=== PATIENT | female | born 1950 | race Caucasian/White ===

== ENCOUNTER 2016-06-08 13:12 | Inpatient (IN) | payer MEDICARE, OTHER ==
[2016-06-08] MEDS ORDERED: SUBLIMAZE 100 MCG/2 ML IV ONE ×2 (14:11→14:38)
[2016-06-08 14:13] LABS: BASOPHIL % 0.1 % (0.0-0.4); Eosinophil % 0.6 % (0.00-5.0); Granulocytes % 66.8 % (36.0-66.0); Lymphocytes % 17.2 % (24.0-44.0); Mean Corpuscular Hemoglobin 29.3 pg (26-32); Mean Platelet Volume 9.3 fl (6-9.5); Monocytes % 15.3 % (0.0-12.0); Platelet Count 355 K/mm3 (150-450); Red Blood Count 4.75 M/mm3 (4.1-5.4); Red Cell Distribution Width 14.7 % (11.5-14.0); White Blood Count 7.2 K/mm3 (4.0-10.5)
[2016-06-08] MEDS ORDERED: Sodium Chloride 0.9% 1000 ML 1,000 ML IV SCH (14:15)
[2016-06-08] MEDS ORDERED: SUBLIMAZE 100 MCG/2 ML ONE ×2 (14:17→14:42)
--- NOTE | 2016-06-08 14:30 | ERPHSYRPT ---
- History of Present Illness Time Seen by Provider: 06/08/16 13:20 Source: patient Patient Subjective Stated Complaint: blood in urine for two days Triage Nursing Assessment: to room per own motorized w/c. skin w/d, pale. resp nonlabored. patient is bilateral aka. c/o bleeding from bladder. quick cath done, urine is dark red. also having left lower quad abd tenderness. some bruising noted to area. denies injury. Physician History: CC: blood in urine Hx: 66 y/o patient of Dr Foster. She has hx of intermittent short bouts of hematuria without prior urology investigation. She now has several days hx of dark bloody urine. She is on warfarin for atrial fibrillation. She has some headache. reported some confusion. No fever or chills. No injury. She has prior leg amputation. Timing/Duration: day(s) (few) Allergies/Adverse Reactions: metoprolol Allergy (Severe, Verified 06/08/16 14:33) Hives PCN Allergy (Severe, Uncoded 12/23/14 12:22) Hives REDNESS. sulfa Allergy (Severe, Uncoded 12/23/14 12:22) Hives iodine Allergy (Intermediate, Uncoded 12/23/14 12:22) Skin Irritation Home Medications: Clopidogrel Bisulfate 75 mg [PLAVIX 75 MG Tablet] 75 mg PO DAILY 12/23/11 [History] Fentanyl 100 Mcg Patch [Duragesic 100 MCG Patch] 100 mcg TOP UD 12/23/11 [ History] Insulin Aspart [Novolog] 1 unit SQ UD 12/23/11 [History] Insulin Glargine [Lantus Insulin] 50 unit SQ HS 12/23/11 [History] Nitroglycerin 0.2 mg/Hr [Nitro-Dur 0.2 mg/Hr] 0.2 mg TOP DAILY 12/23/11 [ History] Morphine Sulfate [Morphine Sulfate ER] 60 mg PO TID 11/05/12 [History] Warfarin Sodium 2.5 mg [Coumadin 2.5 MG] 1 mg PO BID 11/05/12 [History] Diltiazem HCl [Cardizem Cd] 180 mg PO DAILY 01/09/16 [History] Diclofenac Sodium Gel [Voltaren GEL] 2 gm TOP QID 05/07/16 [History] Non-Formulary Drug [Non-Formulary Item] 1 mg PO DAILY 06/08/16 [History] Hx Tetanus, Diphtheria Vaccination/Date Given: No Hx Influenza Vaccination/Date Given: Yes Hx Pneumococcal Vaccination/Date Given: No - Review of Systems Constitutional: Fatigue, Malaise, Weakness, No Fever, No Chills Eyes: No Symptoms, No Vision Changes Ears, Nose, & Throat: No Symptoms Respiratory: No Cough, No Dyspnea Cardiac: No Chest Pain Abdominal/Gastrointestinal: No Abdominal Pain, No Nausea, No Vomiting, No Diarrhea Genitourinary Symptoms: Dysuria, Hematuria Skin: No Rash Neurological: Headache, Other (confusion), No Focal Weakness, No Parasthesia All Other Systems: Reviewed and Negative - Past Medical History Pertinent Past Medical History: Yes Neurological History: Peripheral Neuropathy, Other ENT History: No Pertinent History Cardiac History: Arrhythmia, Deep Vein Thrombosis, Hypertension, Peripheral Vascular Disease Respiratory History: No Pertinent History Endocrine Medical History: Diabetes Type II Musculoskeletal History: Other GI Medical History: Gallbladder Disease History: Other Psycho-Social History: Anxiety Female Reproductive Disorders: Uterine Cancer Other Medical History: can not tolerate catheter due to scarring. foot and leg phantom limb pain - Past Surgical History Past Surgical History: Yes Neuro Surgical History: No Pertinent History Cardiac: Vascular Surgery Respiratory: No Pertinent History Gastrointestinal: No Pertinent History Genitourinary: No Pertinent History Musculoskeletal: Amputation Female Surgical History: Hysterectomy Other Surgical History: multiple femoral bypasses, lesion removed from nose ( skin CA). cvl port left chest. lesions removed outer labia - Social History Smoking Status: Former smoker How long have you smoked: 10 years Exposure to second hand smoke: No Drug Use: none Patient Lives Alone: No - Female History Hx Now: No - Nursing Vital Signs Nursing Vital Signs: Initial Vital Signs Temperature 99.3 F Temperature Source Oral Pulse Rate 80 Respiratory Rate 16 Blood Pressure [Right Arm] 129/67 Pain Intensity 5 - Physical Exam General Appearance: alert Eye Exam: PERRL/EOMI Ears, Nose, Throat Exam: normal ENT inspection, moist mucous membranes Neck Exam: normal inspection, non-tender, supple Respiratory Exam: normal breath sounds, lungs clear Cardiovascular Exam: regular rate/rhythm Gastrointestinal/Abdomen Exam: soft, No tenderness, No distention Extremity Exam: other (absent legs) Neurologic Exam: alert, oriented x 3, cooperative, No motor deficits Skin Exam: warm, dry, No rash SpO2 Interpretation: borderline oxygenation SpO2: 93 Oxygen Delivery: Room Air - Course Nursing assessment & vital signs reviewed: Yes Ordered Tests: Active Orders 24 hr Category Date Time Status Supervisor Drying And Winding STAT Care 06/08/16 13:45 Active IV Insertion STAT Care 06/08/16 13:40 Active cath [Cath for Specimen-Straight] STAT Care 06/08/16 13:28 Active HEAD WITHOUT CONTRAST [CT] Stat Exams 06/08/16 14:31 Ordered BLOOD CULTURE Stat Lab 06/08/16 14:47 Received CBC W DIFF Stat Lab 06/08/16 14:06 Completed CMP Stat Lab 06/08/16 14:06 Completed CULTURE,URINE Stat Lab 06/08/16 14:30 Received Lactic Acid Urgent Lab 06/08/16 14:00 Completed PROTIME WITH INR Stat Lab 06/08/16 14:06 Completed UA W/ MICROSCOPIC Stat Lab 06/08/16 14:15 Completed Medication Summary Generic Name Dose Route Start Last Admin Trade Name Freq PRN Reason Stop Dose Admin Sodium Chloride 1,000 mls @ 100 mls/hr 06/08/16 14:15 06/08/16 14:20 Sodium Chloride 0.9% 1000 Ml IV 07/08/16 14:14 100 mls/hr .Q10H MARISOL Administration Discontinued Medications Generic Name Dose Route Start Last Admin Trade Name Freq PRN Reason Stop Dose Admin Fentanyl Citrate 50 mcg 06/08/16 14:11 06/08/16 14:20 Sublimaze 100 Mcg/2 Ml IV 06/08/16 14:12 50 mcg STAT ONE Administration Fentanyl Citrate Confirm 06/08/16 14:17 Sublimaze 100 Mcg/2 Ml Administered 06/08/16 14:18 Dose 100 mcg .ROUTE .STK-MED ONE Fentanyl Citrate 50 mcg 06/08/16 14:38 06/08/16 14:43 Sublimaze 100 Mcg/2 Ml IV 06/08/16 14:39 50 mcg STAT ONE Administration Fentanyl Citrate Confirm 06/08/16 14:42 Sublimaze 100 Mcg/2 Ml Administered 06/08/16 14:43 Dose 100 mcg .ROUTE .STK-MED ONE Ceftriaxone Sodium/Dextrose 50 mls @ 100 mls/hr 06/08/16 14:32 06/08/16 14:38 Rocephin 1 Gm-D5w 50 Ml Bag IV 06/08/16 15:01 100 mls/hr STAT ONE Administration Ceftriaxone Sodium/Dextrose Confirm 06/08/16 14:36 Rocephin 1 Gm-D5w 50 Ml Bag Administered 06/08/16 14:37 Dose 50 mls @ ud IV .STK-MED ONE Lab/Rad Data: Laboratory Result Diagrams 06/08/16 14:06 06/08/16 14:06 Laboratory Results 06/08/16 06/08/16 06/08/16 Range/Units 14:15 14:06 14:06 WBC (4.0-10.5) K/mm3 RBC (4.1-5.4) M/mm3 Hgb (12.0-16.0) gm/dl Hct (35-47) % MCV (78-100) fl MCH (26-32) pg MCHC (32-36) g/dl RDW (11.5-14.0) % Plt Count (150-450) K/mm3 MPV (6-9.5) fl Gran % (36.0-66.0) % Lymphocytes % (24.0-44.0) % Monocytes % (0.0-12.0) % Eosinophils % (0.00-5.0) % Basophils % (0.0-0.4) % Basophils # (0-0.4) INR 6.28 H* (0.8-3.0) Sodium 134 L (136-145) mEq/L Potassium 3.9 (3.5-5.1) mEq/L Chloride 98 (98-107) mEq/L Carbon Dioxide 24.8 (21-32) mEq/L Anion Gap 15.4 H (5-15) MEQ/L BUN 28 H (9-20) mg/dL Creatinine 1.01 (0.55-1.30) mg/dl Estimated GFR 58 ML/MIN Glucose 119 H (70-110) MG/DL Lactic Acid (0.4-2.0) Calcium 9.2 (8.5-10.1) mg/dL Total Bilirubin 0.6 (0.2-1.0) mg/dL AST 14 L (15-37) U/L ALT 7 L (12-78) U/L Alkaline Phosphatase 82 (46-116) U/L Serum Total Protein 7.4 (6.4-8.2) gm/dL Albumin 3.0 L (3.4-5.0) g/dL Ur Collection Type CATH Urine Color RED (YELLOW) Urine Appearance CLOUDY (CLEAR) Urine pH 6.0 (5-6) Ur Specific [facility] 1.025 (1.005-1.025) Urine Protein >300 (Negative) Urine Glucose (UA) NEGATIVE (NEGATIVE) mg/dL Urine Ketones SMALL-15 (NEGATIVE) Urine Nitrite POSITIVE (NEGATIVE) Urine Bilirubin MODERATE (NEGATIVE) Urine Urobilinogen 1 (0-1) mg/dL Urine WBC (Auto) NEGATIVE (NEGATIVE) Urine RBC (Auto) LARGE (0-5) [facility]/ul Urine Microscopic RBC >100 (0-2) /HPF Urine Microscopic WBC 2-5 (0-5) /HPF Ur Epithelial Cells RARE (FEW) /HPF Urine Bacteria FEW (NEGATIVE) /HPF Specimen Received 06/08/16 1417 06/08/16 06/08/16 Range/Units 14:06 14:00 WBC 7.2 (4.0-10.5) K/mm3 RBC 4.75 (4.1-5.4) M/mm3 Hgb 13.9 (12.0-16.0) gm/dl Hct 41.8 (35-47) % MCV 88.0 (78-100) fl MCH 29.3 (26-32) pg MCHC 33.3 (32-36) g/dl RDW 14.7 H (11.5-14.0) % Plt Count 355 (150-450) K/mm3 MPV 9.3 (6-9.5) fl Gran % 66.8 H (36.0-66.0) % Lymphocytes % 17.2 L (24.0-44.0) % Monocytes % 15.3 H (0.0-12.0) % Eosinophils % 0.6 (0.00-5.0) % Basophils % 0.1 (0.0-0.4) % Basophils # 0.01 (0-0.4) INR (0.8-3.0) Sodium (136-145) mEq/L Potassium (3.5-5.1) mEq/L Chloride (98-107) mEq/L Carbon Dioxide (21-32) mEq/L Anion Gap (5-15) MEQ/L BUN (9-20) mg/dL Creatinine (0.55-1.30) mg/dl Estimated GFR ML/MIN Glucose (70-110) MG/DL Lactic Acid 1.5 (0.4-2.0) Calcium (8.5-10.1) mg/dL Total Bilirubin (0.2-1.0) mg/dL AST (15-37) U/L ALT (12-78) U/L Alkaline Phosphatase (46-116) U/L Serum Total Protein (6.4-8.2) gm/dL Albumin (3.4-5.0) g/dL Ur Collection Type Urine Color (YELLOW) Urine Appearance (CLEAR) Urine pH (5-6) Ur Specific [facility] (1.005-1.025) Urine Protein (Negative) Urine Glucose (UA) (NEGATIVE) mg/dL Urine Ketones (NEGATIVE) Urine Nitrite (NEGATIVE) Urine Bilirubin (NEGATIVE) Urine Urobilinogen (0-1) mg/dL Urine WBC (Auto) (NEGATIVE) Urine RBC (Auto) (0-5) [facility]/ul Urine Microscopic RBC (0-2) /HPF Urine Microscopic WBC (0-5) /HPF Ur Epithelial Cells (FEW) /HPF Urine Bacteria (NEGATIVE) /HPF Specimen Received - Progress Progress Note: 06/08/16 15:32 Pt has mild confusion per so CT head done. Results pending but prelim without bleed. She had UTI, coumadin coagulopathy, and hematuria. Called Dr Foster and will admit to IP for abtx. Cultures pending. Discussed with : Jaime Will see patient in: hospital (full admit) Counseled pt/family regarding: lab results, diagnosis, need for follow-up, rad results - Departure Time of Disposition: 15:33 Departure Disposition: In-patient Admission Clinical Impression: coumadin coagulopathy, UTI (urinary tract infection), Hematuria, Confusion Condition: Fair Critical Care Time: No Referrals: EDEL FOSTER MD [Primary Care Provider] -
[2016-06-08] MEDS ORDERED: ROCEPHIN 1 Gm-D5w 50 ml Bag** 50 ML IV ONE ×2 (14:32→14:36)
[2016-06-08 14:39] LABS: PROTIME 67.3 SECONDS (9.95-12.35)
[2016-06-08 14:42] LABS: ANION GAP 15.4 MEQ/L (5-15); BILIRUBIN,TOTAL 0.6 mg/dL (0.2-1.0); Carbon Dioxide 24.8 mEq/L (21-32); Potassium 3.9 mEq/L (3.5-5.1); Total Protein 7.4 gm/dL (6.4-8.2)
[2016-06-08 14:50] LABS: Collection Type CATH
[2016-06-08 14:51] LABS: Bacteria FEW /HPF (NEGATIVE); COMPLETE URINE MICROSCOPIC? YES; Epithelial Cells RARE /HPF (FEW)
[2016-06-08 14:57] LABS: INR 6.28 (0.8-3.0)
[2016-06-08] MEDS ORDERED: Vitamin K 10 MG/ML PO ONE (15:34)
[2016-06-08] MEDS ORDERED: Vitamin K 10 MG/ML ONE (15:41)
[2016-06-08] MEDS: Sodium Chloride 0.9% 1000 ML 1,000 ML IV SCH (17:37)
[2016-06-08] MEDS ORDERED: DUONEB 0.5-3 MG/3 ml Neb IH ONE (18:50)
--- NOTE | 2016-06-08 20:39 | PCM.HP ---
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 she presented to the ER with gross hematuria, has coumadin on hold due to INR of 6 2 days ago, was on 2mg daily prior to this and has been quite stable for some time, she is having a hard time passing urine due to clots, no fever, no vomiting or abd pain, no cough, has soreness in lower abdomen. - Review of Systems Constitutional: No Fever, No Chills Respiratory: No Cough, No Short Of Breath Cardiac: No Chest Pain, No Edema, No Syncope Genitourinary Symptoms: Hematuria, Urinary Retention, No Dysuria Skin: No Rash All Other Systems: Reviewed and Negative Medications & Allergies Home Medications: Home Medication List Clopidogrel Bisulfate 75 mg [PLAVIX 75 MG Tablet] 75 mg PO DAILY 12/23/11 [History Confirmed 06/08/16] Fentanyl 100 Mcg Patch [Duragesic 100 MCG Patch] 100 mcg TOP UD 12/23/11 [ History Confirmed 06/08/16] Insulin Aspart [Novolog] 1 unit SQ UD 12/23/11 [History Confirmed 06/08/16] Insulin Glargine [Lantus Insulin] 50 unit SQ HS 12/23/11 [History Confirmed 06/08/16] Nitroglycerin 0.2 mg/Hr [Nitro-Dur 0.2 mg/Hr] 0.2 mg TOP DAILY 12/23/11 [ History Confirmed 06/08/16] Morphine Sulfate [Morphine Sulfate ER] 60 mg PO TID 11/05/12 [History Confirmed 06/08/16] Diltiazem HCl [Cardizem Cd] 180 mg PO HS 01/09/16 [History Confirmed 06/08/16] Diclofenac Sodium Gel [Voltaren GEL] 2 gm TOP QID PRN PRN 05/07/16 [ History Confirmed 06/08/16] Calcium Carb/Magnesium Hydrox [Rolaids Chewable Tablet] 1 each PO UD PRN [History Confirmed 06/08/16] Cranberry 500 mg PO DAILY 06/08/16 [History Confirmed 06/08/16] Fluconazole 100 mg [Diflucan 100 MG] 100 mg PO DAILY PRN PRN 06/08/16 [ History Confirmed 06/08/16] Lutein [Natural Lutein] 20 mg PO DAILY 06/08/16 [History Confirmed 06/08/16] Non-Formulary Drug [Non-Formulary Item] 1 mg PO TID 06/08/16 [History Confirmed 06/08/16] Warfarin Sodium 2 mg [Coumadin 2 MG] 2 mg PO HS 06/08/16 [History Confirmed 06/08/16] Allergies/Adverse Reactions: Allergies Allergy/AdvReac Type Severity Reaction Status Date / Time metoprolol Allergy Severe Hives Verified 06/08/16 14:33 pantoprazole [From Protonix] Allergy Verified 06/08/16 15:38 PCN Allergy Severe Hives Uncoded 12/23/14 12:22 sulfa Allergy Severe Hives Uncoded 12/23/14 12:22 iodine Allergy Intermediate Skin Uncoded 12/23/14 12:22 Irritation - Past Medical History Past Medical History: Yes Neurological History: Peripheral Neuropathy, Other ENT History: No Pertinent History Cardiac History: Arrhythmia, Deep Vein Thrombosis, Hypertension, Peripheral Vascular Disease Respiratory History: No Pertinent History Endocrine Medical History: Diabetes Type II Musculoskelatal History: Other GI Medical History: Gallbladder Disease History: Other Pyscho-Social History: Anxiety Reproductive Disorders: Uterine Cancer Comment: can not tolerate catheter due to scarring. foot and leg phantom limb pain. SKIN CANCER- GENITAL AREA - Female History Are you now?: No - Past Surgical History Past Surgical History: Yes Neuro Surgical History: No Pertinent History Cardiac History: Vascular Surgery Respiratory Surgery: No Pertinent History GI Surgical History: No Pertinent History Genitourinary Surgical Hx: No Pertinent History Musculskeletal Surgical Hx: Amputation Female Surgical History: Hysterectomy Other Surgical History: multiple femoral bypasses, lesion removed from nose ( skin CA). cvl port left chest. lesions removed outer labia - Social History Smoking Status: Former smoker How long have you smoked: 10 years Exposure to second hand smoke: No Alcohol: None Drug Use: none - Physical Exam Vital Signs: Vital Signs - 24 hr Temp Pulse Resp BP Pulse Ox 06/08/16 19:11 77 13 88 L 06/08/16 19:05 77 13 88 L 06/08/16 16:34 98.6 F 78 18 130/63 91 L 06/08/16 16:21 98.6 F 78 18 130/63 91 L 06/08/16 15:34 93 L 06/08/16 15:19 80 16 129/67 91 L 06/08/16 14:24 88 18 129/67 94 L 06/08/16 13:28 99.3 F 96 H 18 129/101 93 L General Appearance: no apparent distress Neurologic Exam: alert, oriented x 3 Eye Exam: PERRL/EOMI, eyes nml inspection Respiratory Exam: normal breath sounds, lungs clear, No respiratory distress Cardiovascular Exam: regular rate/rhythm, normal heart sounds, normal peripheral pulses Gastrointestinal/Abdomen Exam: soft, normal bowel sounds, No tenderness, No mass Extremity Exam: other (saumya AKA) Skin Exam: normal color, warm, dry, No rash Results - Other Procedures and Tests Respiratory Therapy 06/08/16 19:04 neb [Respiratory Nebulizer] PRN 06/08/16 19:10 Oxygen NASAL CANNULA 6 lpm Assessment/Plan (1) Warfarin-induced coagulopathy Current Visit: Yes Status: Acute Assessment & Plan: was given vitamin K in ER, will repeat INR in am, h/h stable. uncertain why the increase in her INR as dosage has been quite stable Code(s): T45.511A - POISONING BY ANTICOAGULANTS, ACCIDENTAL, INIT; D68.9 - COAGULATION DEFECT, UNSPECIFIED (2) UTI (urinary tract infection) Current Visit: Yes Status: Acute Assessment & Plan: cover with rocephin Code(s): N39.0 - URINARY TRACT INFECTION, SITE NOT SPECIFIED (3) Confusion Current Visit: Yes Status: Acute Assessment & Plan: likely secondary to UTI Code(s): R41.0 - DISORIENTATION, UNSPECIFIED (4) Hematuria Current Visit: Yes Status: Acute Code(s): R31.9 - HEMATURIA, UNSPECIFIED (5) Atrial fibrillation Current Visit: Yes Status: Acute Code(s): I48.91 - UNSPECIFIED ATRIAL FIBRILLATION (6) Peripheral vascular disease Current Visit: Yes Status: Acute Code(s): I73.9 - PERIPHERAL VASCULAR DISEASE, UNSPECIFIED (7) Diabetes mellitus Current Visit: Yes Status: Acute Assessment & Plan: continue lantus and treat with SSI Code(s): E11.9 - TYPE 2 DIABETES MELLITUS WITHOUT COMPLICATIONS
[2016-06-08] MEDS: Zofran 4 MG/2 ML VIAL IV PRN (20:54)
[2016-06-08] MEDS: Pepcid 20 MG PO SCH (20:54)
--- NOTE | 2016-06-08 21:13 | XRAY ---
Indication: Headache and confusion. Patient on warfarin therapy. Multiple contiguous axial images obtained through the head without contrast. Comparison: February 21, 2012. Stable age-appropriate global atrophy and minimal periventricular degenerative microvascular ischemia bilaterally. New small remote infarct in the right michael and smaller focus in the left mid valdez radiata. No acute intracranial hemorrhage, abnormal extra-axial fluid collection, or mass effect. Fourth ventricle is midline without hydrocephalus. Bony calvarium intact again with mild hyperostosis frontalis interna. Visualized paranasal sinuses and mastoid air cells are clear. Impression: Nonacute senile brain. New finding for small old infarcts as detailed. Comment: Preliminary interpretation was made by [facility]. No critical discrepancy. CTDI 68.81
--- NOTE | 2016-06-08 21:15 | XRAY ---
Indication: Confusion. Atrial fibrillation. Comparison: June 18, 2013. Portable chest slightly rotated today with now right base atelectasis/scarring and tenting of the right hemidiaphragm. Remaining lungs clear. Heart is not enlarged. Vascularity normal. Stable left-sided Port-A-Cath. Bony thorax intact again with mild osteopenia. Again right axillary acosta dissection. Impression: Nonacute chest with chronic features.
[2016-06-08] MEDS: Cardizem CD 180 MG PO SCH (21:51)
[2016-06-08] MEDS: Lantus Insulin SQ SCH (21:51)
[2016-06-08] MEDS ORDERED: MS CONTIN 30 MG PO SCH (22:00)
[2016-06-08] MEDS ORDERED: TUMS EX TABLETS PO ONE (23:07)
[2016-06-08] MEDS: Tums EX 750 MG PO PRN (23:08)
[2016-06-09 05:42] LABS: BASOPHIL % 0.1 % (0.0-0.4); Eosinophil % 0.6 % (0.00-5.0); Granulocytes % 68.8 % (36.0-66.0); Lymphocytes % 17.5 % (24.0-44.0); Mean Cell Volume 90.4 fl (78-100); Mean Corpuscular Hemoglobin 28.9 pg (26-32); Mean Platelet Volume 9.2 fl (6-9.5); Platelet Count 306 K/mm3 (150-450); Red Blood Count 4.26 M/mm3 (4.1-5.4); Red Cell Distribution Width 14.6 % (11.5-14.0); White Blood Count 8.1 K/mm3 (4.0-10.5)
[2016-06-09 05:54] LABS: INR 4.85 (0.8-3.0); PROTIME 51.9 SECONDS (9.95-12.35)
[2016-06-09 05:55] LABS: ANION GAP 8.7 MEQ/L (5-15); BLOOD UREA NITROGEN 25 mg/dL (9-20); CHLORIDE 102 mEq/L (98-107); Carbon Dioxide 30.1 mEq/L (21-32); Glucose 56 MG/DL (70-110); Potassium 3.9 mEq/L (3.5-5.1); SODIUM 137 mEq/L (136-145)
--- NOTE | 2016-06-09 06:51 | PCM.NOTE ---
Date and Time: 06/09/16 0649 Subjective Assessment: no new complaints today, hematuria seems to be improving. requiring oxygen, no significant cough or complaints of dyspnea Objective Exam General Appearance: no apparent distress Neurologic Exam: alert, oriented x 3 Skin Exam: normal color, warm, dry Respiratory Exam: wheezing, No respiratory distress, No crackles/rales Cardiovascular Exam: regular rate/rhythm, normal heart sounds Gastrointestinal/Abdomen Exam: soft, No tenderness, No mass Extremity Exam: normal inspection, normal range of motion OBJECTIVE DATA Vital Signs: Vital Signs - 24 hr Temp Pulse Resp BP Pulse Ox 06/09/16 04:00 99.2 F 65 20 129/58 97 06/09/16 00:00 98.1 F 89 20 159/70 94 L 06/08/16 20:00 99.1 F 80 17 127/58 94 L 06/08/16 19:11 77 13 88 L 06/08/16 19:05 77 13 88 L 06/08/16 16:34 98.6 F 78 18 130/63 91 L 06/08/16 16:21 98.6 F 78 18 130/63 91 L 06/08/16 15:34 93 L 06/08/16 15:19 80 16 129/67 91 L 06/08/16 14:24 88 18 129/67 94 L 06/08/16 13:28 99.3 F 96 H 18 129/101 93 L Oxygen-Last 24 hours O2 Percentage 60% O2 Percentage 60% O2 Percentage 60% Pain Assessment - Last Documented Pain Intensity 4 Pain Scale Used 0-10 Pain Scale Intake and Output: Intake & Output 06/06/16 06/07/16 06/08/16 06/09/16 11:59 11:59 11:59 11:59 Intake Total 1383 Output Total 500 Balance 883 Weight 70.902 kg Lab Results: Accuchecks Date 06/08/16 Time 22:00 Accucheck Value: 187 Lab Results-Last 24 Hours 06/09/16 06/09/16 06/09/16 Range/Units 05:10 05:10 05:10 WBC 8.1 (4.0-10.5) K/mm3 RBC 4.26 (4.1-5.4) M/mm3 Hgb 12.3 (12.0-16.0) gm/dl Hct 38.5 (35-47) % MCV 90.4 (78-100) fl MCH 28.9 (26-32) pg MCHC 31.9 L (32-36) g/dl RDW 14.6 H (11.5-14.0) % Plt Count 306 (150-450) K/mm3 MPV 9.2 (6-9.5) fl Gran % 68.8 H (36.0-66.0) % Lymphocytes % 17.5 L (24.0-44.0) % Monocytes % 13.0 H (0.0-12.0) % Eosinophils % 0.6 (0.00-5.0) % Basophils % 0.1 (0.0-0.4) % Basophils # 0.01 (0-0.4) INR 4.85 H (0.8-3.0) Sodium 137 (136-145) mEq/L Potassium 3.9 (3.5-5.1) mEq/L Chloride 102 (98-107) mEq/L Carbon Dioxide 30.1 (21-32) mEq/L Anion Gap 8.7 (5-15) MEQ/L BUN 25 H (9-20) mg/dL Creatinine 0.85 (0.55-1.30) mg/dl Estimated GFR > 60 ML/MIN Glucose 56 L (70-110) MG/DL Calcium 8.3 L (8.5-10.1) mg/dL Assessment/Plan (1) Warfarin-induced coagulopathy Current Visit: Yes Status: Acute Assessment & Plan: improving, monitor INR Code(s): T45.511A - POISONING BY ANTICOAGULANTS, ACCIDENTAL, INIT; D68.9 - COAGULATION DEFECT, UNSPECIFIED (2) UTI (urinary tract infection) Current Visit: Yes Status: Acute Assessment & Plan: on rocephin, c and s pending. Code(s): N39.0 - URINARY TRACT INFECTION, SITE NOT SPECIFIED (3) Confusion Current Visit: Yes Status: Acute Assessment & Plan: improving. Code(s): R41.0 - DISORIENTATION, UNSPECIFIED (4) Hematuria Current Visit: Yes Status: Acute Code(s): R31.9 - HEMATURIA, UNSPECIFIED (5) Atrial fibrillation Current Visit: Yes Status: Acute Code(s): I48.91 - UNSPECIFIED ATRIAL FIBRILLATION (6) Peripheral vascular disease Current Visit: Yes Status: Acute Code(s): I73.9 - PERIPHERAL VASCULAR DISEASE, UNSPECIFIED (7) Diabetes mellitus Current Visit: Yes Status: Acute Code(s): E11.9 - TYPE 2 DIABETES MELLITUS WITHOUT COMPLICATIONS (8) COPD exacerbation Current Visit: Yes Status: Acute Assessment & Plan: mild, will add duonebs timed every 6 hours, on rocephin. will observe Code(s): J44.1 - CHRONIC OBSTRUCTIVE PULMONARY DISEASE W (ACUTE) EXACERBATION
[2016-06-09] MEDS: DUONEB 0.5-3 MG/3 ml Neb IH SCH ×3 (08:27→19:14)
[2016-06-09] MEDS: Sodium Chloride 0.9% 1000 ML 1,000 ML IV SCH (09:18)
[2016-06-09] MEDS: NITRO-DUR 0.2 MG/HR TOP SCH (09:19)
[2016-06-09] MEDS: ROCEPHIN 1 Gm-D5w 50 ml Bag** 50 ML IV SCH ×2 (09:19→22:31)
[2016-06-09] MEDS: MS CONTIN 60 MG PO SCH ×3 (09:20→22:12)
[2016-06-09] MEDS: Pepcid 20 MG PO SCH ×2 (09:20→22:13)
[2016-06-09] MEDS: Tums EX 750 MG PO PRN ×2 (10:24→23:38)
[2016-06-09] MEDS: Lantus Insulin SQ SCH (22:13)
[2016-06-09] MEDS: Cardizem CD 180 MG PO SCH (22:13)
[2016-06-10] MEDS: DUONEB 0.5-3 MG/3 ml Neb IH SCH ×4 (01:44→19:08)
[2016-06-10 05:33] LABS: BASOPHIL % 0.3 % (0.0-0.4); Eosinophil % 2.4 % (0.00-5.0); Granulocytes % 61.4 % (36.0-66.0); Lymphocytes % 21.2 % (24.0-44.0); Mean Cell Volume 90.2 fl (78-100); Mean Corpuscular Hemoglobin 29.4 pg (26-32); Mean Platelet Volume 9.1 fl (6-9.5); Monocytes % 14.7 % (0.0-12.0); Platelet Count 308 K/mm3 (150-450); Red Blood Count 4.08 M/mm3 (4.1-5.4); Red Cell Distribution Width 14.5 % (11.5-14.0); White Blood Count 7.4 K/mm3 (4.0-10.5)
[2016-06-10 05:48] LABS: INR 3.65 (0.8-3.0); PROTIME 39.4 SECONDS (9.95-12.35)
[2016-06-10 05:54] LABS: BLOOD UREA NITROGEN 16 mg/dL (9-20); CHLORIDE 104 mEq/L (98-107); Carbon Dioxide 27.3 mEq/L (21-32); Glucose 52 MG/DL (70-110); Potassium 3.4 mEq/L (3.5-5.1); SODIUM 140 mEq/L (136-145)
[2016-06-10] MEDS: Sodium Chloride 0.9% 1000 ML 1,000 ML IV SCH (06:21)
--- NOTE | 2016-06-10 07:54 | PCM.NOTE ---
Date and Time: 06/10/16 0753 Subjective Assessment: patient still feels poorly, aching and weak. no specific complaints, just doesn' t feel well Objective Exam General Appearance: no apparent distress, alert Skin Exam: normal color, warm, dry Respiratory Exam: normal breath sounds, lungs clear, No respiratory distress Cardiovascular Exam: regular rate/rhythm, normal heart sounds Gastrointestinal/Abdomen Exam: soft, No tenderness, No mass Extremity Exam: other (phu AKA) OBJECTIVE DATA Vital Signs: Vital Signs - 24 hr Temp Pulse Resp BP Pulse Ox 06/10/16 07:07 97.8 F 68 20 138/74 96 06/10/16 06:53 63 16 93 L 06/10/16 04:00 98.9 F 67 16 142/64 93 L 06/10/16 01:44 61 16 97 06/10/16 00:00 98.9 F 65 14 137/64 98 06/09/16 20:00 98.5 F 60 16 113/58 95 06/09/16 19:29 97 06/09/16 19:15 66 20 97 06/09/16 16:00 98.1 F 71 23 124/71 97 06/09/16 13:32 75 20 96 06/09/16 11:31 98.2 F 81 20 128/60 95 06/09/16 08:30 70 20 96 06/09/16 08:00 98.9 F 67 18 95/52 96 Oxygen-Last 24 hours O2 Percentage 2 Liters = 28% O2 Percentage 2 Liters = 28% O2 Percentage 2 Liters = 28% O2 Percentage 2 Liters = 28% O2 Percentage 2 Liters = 28% O2 Percentage 2 Liters = 28% O2 Percentage 4 Liters = 36% Pain Assessment - Last Documented Pain Intensity 0 Pain Scale Used 0-10 Pain Scale Intake and Output: Intake & Output 06/07/16 06/08/16 06/09/16 06/10/16 11:59 11:59 11:59 11:59 Intake Total 1383 2007 Output Total 500 Balance 883 2007 Weight 70.902 kg Lab Results: Accuchecks Date 06/09/16 Date 06/09/16 Time 16:30 Time 11:14 Accucheck Value: 84 Accucheck Value: 126 Accucheck Value: 102 Accucheck Value: 87 Lab Results-Last 24 Hours 0406/10/16 06/10/16 Range/Units 05:20 05:20 05:20 WBC 7.4 (4.0-10.5) K/mm3 RBC 4.08 L (4.1-5.4) M/mm3 Hgb 12.0 (12.0-16.0) gm/dl Hct 36.8 (35-47) % MCV 90.2 (78-100) fl MCH 29.4 (26-32) pg MCHC 32.6 (32-36) g/dl RDW 14.5 H (11.5-14.0) % Plt Count 308 (150-450) K/mm3 MPV 9.1 (6-9.5) fl Gran % 61.4 (36.0-66.0) % Lymphocytes % 21.2 L (24.0-44.0) % Monocytes % 14.7 H (0.0-12.0) % Eosinophils % 2.4 (0.00-5.0) % Basophils % 0.3 (0.0-0.4) % Basophils # 0.02 (0-0.4) INR 3.65 H (0.8-3.0) Sodium 140 (136-145) mEq/L Potassium 3.4 L (3.5-5.1) mEq/L Chloride 104 (98-107) mEq/L Carbon Dioxide 27.3 (21-32) mEq/L Anion Gap 12.0 (5-15) MEQ/L BUN 16 (9-20) mg/dL Creatinine 0.63 (0.55-1.30) mg/dl Estimated GFR > 60 ML/MIN Glucose 52 L (70-110) MG/DL Calcium 8.1 L (8.5-10.1) mg/dL Multi-Disciplinary Progress Notes: Multi-Disciplinary Progress Notes 06/09/16 10:50 Case Management Note by Corrine Bah DISCHARGE NEEDS ASSESSED. PHU AMPUTEE, NORMALLY LIVES AT HOME WITH SPOUSE, HAS A WHEELCHAIR AND IS ON WARFARIN ANTICOAGULANT. NO OXYGEN. DENIES NEED FOR ANY ADDITIONAL NEEDS AT HOME. DENIES NEED FOR A LAY CAREGIVER. PLAN TO GO HOME TO PRE EPISODIC LEVEL OF FUNCTION. WILL CONTINUE TO MONITOR FOR ALL D/C NEEDS. Initialized on 06/09/16 10:50 - END OF NOTE Assessment/Plan (1) Warfarin-induced coagulopathy Current Visit: Yes Status: Acute Assessment & Plan: improved, inr 3.6 and hgb normal at 12 Code(s): T45.511A - POISONING BY ANTICOAGULANTS, ACCIDENTAL, INIT; D68.9 - COAGULATION DEFECT, UNSPECIFIED (2) UTI (urinary tract infection) Current Visit: Yes Status: Acute Assessment & Plan: on rocephin, c and s pending Code(s): N39.0 - URINARY TRACT INFECTION, SITE NOT SPECIFIED (3) Confusion Current Visit: Yes Status: Acute Code(s): R41.0 - DISORIENTATION, UNSPECIFIED (4) Hematuria Current Visit: Yes Status: Acute Assessment & Plan: improving Code(s): R31.9 - HEMATURIA, UNSPECIFIED (5) Atrial fibrillation Current Visit: Yes Status: Acute Code(s): I48.91 - UNSPECIFIED ATRIAL FIBRILLATION (6) Peripheral vascular disease Current Visit: Yes Status: Acute Code(s): I73.9 - PERIPHERAL VASCULAR DISEASE, UNSPECIFIED (7) Diabetes mellitus Current Visit: Yes Status: Acute Code(s): E11.9 - TYPE 2 DIABETES MELLITUS WITHOUT COMPLICATIONS (8) COPD exacerbation Current Visit: Yes Status: Acute Code(s): J44.1 - CHRONIC OBSTRUCTIVE PULMONARY DISEASE W (ACUTE) EXACERBATION
[2016-06-10] MEDS: NITRO-DUR 0.2 MG/HR TOP SCH (09:49)
[2016-06-10] MEDS: MS CONTIN 60 MG PO SCH ×3 (09:51→22:29)
[2016-06-10] MEDS: Pepcid 20 MG PO SCH ×2 (09:51→22:29)
[2016-06-10] MEDS: ROCEPHIN 1 Gm-D5w 50 ml Bag** 50 ML IV SCH (09:52)
[2016-06-10] MEDS: DURAGESIC TOP SCH (09:53)
[2016-06-10] MEDS: Tums EX 750 MG PO PRN (10:31)
[2016-06-10] MEDS: TYLENOL 325 MG PO PRN (13:29)
[2016-06-10] MEDS: Zofran 4 MG/2 ML VIAL IV PRN (15:21)
[2016-06-10] MEDS: Phenergan 25 MG INJ IV PRN (17:12)
[2016-06-10] MEDS: Dextrose 5%-NS IV Solution 1000 ML 1,000 ML IV SCH (20:06)
[2016-06-10] MEDS: Cardizem CD 180 MG PO SCH (22:28)
[2016-06-10] MEDS: Lantus Insulin SQ SCH (22:30)
[2016-06-11] MEDS: DUONEB 0.5-3 MG/3 ml Neb IH SCH ×4 (03:17→19:20)
[2016-06-11 05:44] LABS: Eosinophil % 0.7 % (0.00-5.0); Lymphocytes % 13.1 % (24.0-44.0); Mean Cell Volume 89.7 fl (78-100); Mean Platelet Volume 8.9 fl (6-9.5); Monocytes % 20.2 % (0.0-12.0); Platelet Count 318 K/mm3 (150-450); Red Blood Count 4.06 M/mm3 (4.1-5.4); Red Cell Distribution Width 14.3 % (11.5-14.0)
[2016-06-11 05:59] LABS: LIPASE 39 U/L (73-393)
[2016-06-11] MEDS: Dextrose 5%-NS IV Solution 1000 ML 1,000 ML IV SCH (06:00)
[2016-06-11 06:01] LABS: INR 4.4 (0.8-3.0); PROTIME 47.2 SECONDS (9.95-12.35)
[2016-06-11 06:06] LABS: ALBUMIN 2.3 g/dL (3.4-5.0); ALKALINE PHOSPHATASE 69 U/L (46-116); ANION GAP 7.7 MEQ/L (5-15); BILIRUBIN,TOTAL 0.3 mg/dL (0.2-1.0); BLOOD UREA NITROGEN 15 mg/dL (9-20); CHLORIDE 103 mEq/L (98-107); Carbon Dioxide 34.5 mEq/L (21-32); Glucose 84 MG/DL (70-110); SGOT/AST 13 U/L (15-37); SODIUM 143 mEq/L (136-145)
[2016-06-11 06:17] LABS: Potassium 2.8 mEq/L (3.5-5.1); SGPT/ALT < 6 U/L (12-78)
[2016-06-11] MEDS: POTASSIUM CHLORIDE 20 mEq IN WATER 100ML 100 ML IV SCH ×2 (07:50→11:05)
[2016-06-11] MEDS ORDERED: Vitamin K 10 MG/ML IM ONE (09:34)
--- NOTE | 2016-06-11 09:34 | PCM.NOTE ---
Date and Time: 06/11/16929 Subjective Assessment: patient reports her abdomen is hurting, no vomiting overnight since she has been NPO. states she feels terrible Objective Exam General Appearance: no apparent distress, alert Respiratory Exam: normal breath sounds, lungs clear, No respiratory distress Cardiovascular Exam: regular rate/rhythm, normal heart sounds Gastrointestinal/Abdomen Exam: soft, No normal bowel sounds, No distention, No guarding OBJECTIVE DATA Vital Signs: Vital Signs - 24 hr Temp Pulse Resp BP Pulse Ox 06/11/16 07:46 98.7 F 77 20 121/61 93 L 06/11/16 07:00 76 18 93 L 06/11/16 04:00 98.6 F 72 19 128/60 94 L 06/11/16 00:00 98.6 F 126 H 21 91/66 93 L 06/10/16 19:39 98.0 F 110 H 21 115/65 93 L 06/10/16 19:11 110 H 14 95 06/10/16 15:19 98.6 F 70 22 142/68 97 06/10/16 13:21 83 20 95 06/10/16 12:18 98.7 F 68 20 132/63 96 Oxygen-Last 24 hours O2 Percentage 2 Liters = 28% O2 Percentage 2 Liters = 28% O2 Percentage 2 Liters = 28% O2 Percentage 2 Liters = 28% O2 Percentage 2 Liters = 28% Pain Assessment - Last Documented Pain Intensity 8 Pain Scale Used 0-10 Pain Scale Intake and Output: Intake & Output 06/08/16 06/09/16 06/10/16 06/11/16 11:59 11:59 11:59 11:59 Intake Total 1383 2007 165 Output Total 500 500 Balance 883 2007 115 Weight 70.902 kg 70.902 kg Lab Results: Accuchecks Date 06/10/16 Time 22:00 Accucheck Value: 68 Accucheck Value: 157 Accucheck Value: 97 Accucheck Value: 100 Lab Results-Last 24 Hours 06/11/16 06/11/16 06/11/16 Range/Units 05:23 05:23 05:23 WBC 6.0 (4.0-10.5) K/mm3 RBC 4.06 L (4.1-5.4) M/mm3 Hgb 11.8 L (12.0-16.0) gm/dl Hct 36.4 (35-47) % MCV 89.7 (78-100) fl MCH 29.0 (26-32) pg MCHC 32.4 (32-36) g/dl RDW 14.3 H (11.5-14.0) % Plt Count 318 (150-450) K/mm3 MPV 8.9 (6-9.5) fl Gran % 66.0 (36.0-66.0) % Lymphocytes % 13.1 L (24.0-44.0) % Monocytes % 20.2 H (0.0-12.0) % Eosinophils % 0.7 (0.00-5.0) % Basophils % 0.0 (0.0-0.4) % Basophils # 0 (0-0.4) INR 4.40 H (0.8-3.0) Sodium 143 (136-145) mEq/L Potassium 2.8 L* (3.5-5.1) mEq/L Chloride 103 (98-107) mEq/L Carbon Dioxide 34.5 H (21-32) mEq/L Anion Gap 7.7 (5-15) MEQ/L BUN 15 (9-20) mg/dL Creatinine 0.71 (0.55-1.30) mg/dl Estimated GFR > 60 ML/MIN Glucose 84 (70-110) MG/DL Calcium 7.9 L (8.5-10.1) mg/dL Total Bilirubin 0.3 (0.2-1.0) mg/dL AST 13 L (15-37) U/L ALT < 6 L (12-78) U/L Alkaline Phosphatase 69 (46-116) U/L Serum Total Protein 6.0 L (6.4-8.2) gm/dL Albumin 2.3 L (3.4-5.0) g/dL Amylase (25-115) U/L Lipase (73-393) U/L 06/11/16 Range/Units 05:23 WBC (4.0-10.5) K/mm3 RBC (4.1-5.4) M/mm3 Hgb (12.0-16.0) gm/dl Hct (35-47) % MCV (78-100) fl MCH (26-32) pg MCHC (32-36) g/dl RDW (11.5-14.0) % Plt Count (150-450) K/mm3 MPV (6-9.5) fl Gran % (36.0-66.0) % Lymphocytes % (24.0-44.0) % Monocytes % (0.0-12.0) % Eosinophils % (0.00-5.0) % Basophils % (0.0-0.4) % Basophils # (0-0.4) INR (0.8-3.0) Sodium (136-145) mEq/L Potassium (3.5-5.1) mEq/L Chloride (98-107) mEq/L Carbon Dioxide (21-32) mEq/L Anion Gap (5-15) MEQ/L BUN (9-20) mg/dL Creatinine (0.55-1.30) mg/dl Estimated GFR ML/MIN Glucose (70-110) MG/DL Calcium (8.5-10.1) mg/dL Total Bilirubin (0.2-1.0) mg/dL AST (15-37) U/L ALT (12-78) U/L Alkaline Phosphatase (46-116) U/L Serum Total Protein (6.4-8.2) gm/dL Albumin (3.4-5.0) g/dL Amylase 17 L (25-115) U/L Lipase 39 L (73-393) U/L Radiology Exams: Radiology Procedures Category Date Time Status ABDOMEN AND PELVIS W/0 CONTRAS [CT] Urgent Exams 06/10/16 17:34 Taken KUB Routine Exams 06/11/16 07:00 Ordered Ultrasound Gallbladder [GALLBLADDER] [US] Routine Exams 06/11/16 07:00 Ordered Assessment/Plan (1) Small bowel obstruction Current Visit: Yes Status: Acute Assessment & Plan: NPO, surgery consult pending. ?SBO vs gallstone ileus. patient to have ruq u/s to r/o CBD stone this am Code(s): K56.69 - OTHER INTESTINAL OBSTRUCTION (2) Cholelithiases Current Visit: Yes Status: Acute Assessment & Plan: amylase and lipase negative, was planned for cholecystectomy with Dr Dye so his group has been consulted regarding SBO/gallstones (3) Warfarin-induced coagulopathy Current Visit: Yes Status: Acute Assessment & Plan: INR has increased again today in spite of no coumadin, will give another dose of vitamin K today Code(s): T45.511A - POISONING BY ANTICOAGULANTS, ACCIDENTAL, INIT; D68.9 - COAGULATION DEFECT, UNSPECIFIED (4) UTI (urinary tract infection) Current Visit: Yes Status: Acute Code(s): N39.0 - URINARY TRACT INFECTION, SITE NOT SPECIFIED (5) Confusion Current Visit: Yes Status: Acute Assessment & Plan: on rocephin, sens on c and s 2 bugs noted Code(s): R41.0 - DISORIENTATION, UNSPECIFIED (6) Hematuria Current Visit: Yes Status: Acute Code(s): R31.9 - HEMATURIA, UNSPECIFIED (7) Atrial fibrillation Current Visit: Yes Status: Acute Code(s): I48.91 - UNSPECIFIED ATRIAL FIBRILLATION (8) Peripheral vascular disease Current Visit: Yes Status: Acute Code(s): I73.9 - PERIPHERAL VASCULAR DISEASE, UNSPECIFIED (9) Diabetes mellitus Current Visit: Yes Status: Acute Code(s): E11.9 - TYPE 2 DIABETES MELLITUS WITHOUT COMPLICATIONS (10) COPD exacerbation Current Visit: Yes Status: Acute Code(s): J44.1 - CHRONIC OBSTRUCTIVE PULMONARY DISEASE W (ACUTE) EXACERBATION
[2016-06-11] MEDS: ROCEPHIN 1 Gm-D5w 50 ml Bag** 50 ML IV SCH (10:17)
[2016-06-11] MEDS: MS CONTIN 60 MG PO SCH ×3 (10:42→21:50)
[2016-06-11] MEDS: Pepcid 20 MG PO SCH ×2 (10:42→21:50)
[2016-06-11] MEDS: NITRO-DUR 0.2 MG/HR TOP SCH (10:42)
[2016-06-11] MEDS: Zofran 4 MG/2 ML VIAL IV PRN (10:52)
--- NOTE | 2016-06-11 11:36 | XRAY ---
Exam: CT of the abdomen and pelvis without IV contrast from 06/10/2016. CTDI: 23.48. Comparison: CT of the abdomen and pelvis without IV contrast from 06/16/2015. Indication: Nausea, vomiting, abdominal pain, elevated INR. Bilateral lower extremity double amputee. Technique: Non-IV contrast axial images were obtained through the abdomen and pelvis. Reconstructed coronal and sagittal images were created and reviewed. Findings: The lung bases reveal bilateral posterior basilar streaking suggestive of discoid atelectasis. Bronchial wall calcification is seen overlying the right hilum and right infrahilar projection posteriorly. The transverse heart size is normal. Some coronary artery calcification is seen. There is marked distention of the stomach which is fluid-filled. There is also significant fluid-filled distention of the small bowel which measures up to 4.5 cm in diameter down to the level of the lower pelvis. Some normal sized distal small bowel loops are seen within the right lower quadrant. I also note reflux of fluid within the distal esophageal lumen. There is a small hiatal hernia. Overall, believe the findings are consistent with a distal small bowel obstruction. Follow-up is warranted. No free intraperitoneal air is seen. The liver appears relatively small and reveals slight irregularity of the liver surface which may reflect chronic hepatic medical disease. Correlate clinically. I believe there is a tiny low-attenuation lesion measuring about 8 mm in diameter at the posterior inferior margin of the right lobe on axial image #20 which is too small to characterize, but likely represents a small cyst. I believe this is unchanged from 06/15/2016. In addition, the gallbladder is mildly distended and reveals some increased attenuation layering within the posterior dependent portion of the gallbladder lumen consistent with cholelithiasis. No gallbladder wall thickening or intrahepatic biliary duct distention is seen. The distal common bile duct is mildly prominent measuring up to 1.2 cm across near the level of the pancreatic head. However, this is unchanged from 06/16/2015. The spleen and pancreas appear unremarkable. The adrenal glands are diffusely prominent bilaterally suggesting some adrenal gland hyperplasia. No adrenal mass is seen. The kidneys appear of unremarkable size measuring about 10.2 cm in greatest length on the sagittal images. In addition, there are numerous predominantly calyceal calcifications as well as a couple renal cortical calcifications. This appears similar to the prior study of 06/16/2015. No hydronephrosis or definite renal mass seen. The abdominal aorta reveals no aneurysm. I see no abnormal retroperitoneal lymphadenopathy. The anterior abdominal wall is remarkable for a small supraumbilical, midline, ventral, fat-containing hernia measuring about 4.3 cm in width. This is essentially unchanged. There is evidence of a femoral-femoral bypass graft along the anterior aspect of the lower pelvis. Dense calcification fills the distal right external iliac artery lumen suggesting occlusion representing no change. I do not definite see the appendix, but no pericecal inflammation is seen to suggest appendicitis. Moderate scattered colonic stool is seen. A surgical clip projecting is seen projected over the anterior upper left pelvis. Numerous surgical clips are seen overlying the lower pelvis bilaterally and each groin and proximal right femur region. Extensive iliac artery vascular calcification is seen. Some probable calcified phleboliths are seen within the lower pelvis toward the left. The patient is status post hysterectomy. The urinary bladder appears grossly unremarkable. No free intraperitoneal fluid is seen. Moderate bilateral osteoarthritic changes are seen within both hips. The bones are demineralized. There is an exaggerated lower lumbar lordosis. There is mild convexity of the thoracolumbar junction toward the left on the coronal images. Spondylosis is seen throughout the visualized thoracolumbar spine. No fracture or aggressive bone lesion is seen. Impression: 1. Abnormal bowel gas pattern most consistent with a distal small bowel obstruction. Consider passing an NG tube for decompression. I see no free intraperitoneal air. 2. Cholelithiasis, small hiatal hernia, bilateral adrenal gland hyperplasia, and a fat-containing ventral hernia superior to the umbilicus in the midline are again seen. 3. Multiple scattered micro-calculi are seen within the kidneys representing no change. No hydronephrosis or evidence of acute obstructive uropathy is seen. No obvious ureterolith is seen. 4. The liver appears somewhat small and reveals a mild irregularity of its surface. Consider hepatic medical disease. I believe there is a tiny stable cyst within the inferior posterior aspect of the right lobe of the liver. 5. Streaky density is seen at both posterior lung bases which likely represents bibasilar discoid atelectasis. 6. Extensive arteriosclerotic vascular disease is seen in this patient who is a double lower extremity amputee. A femoral-femoral bypass is seen. 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 This is unchanged.
--- NOTE | 2016-06-11 11:55 | XRAY ---
Exam: AP portable supine abdomen films from 06/11/2016. Comparison: CT of the abdomen and pelvis without IV contrast from 06/10/2016. Indication: Abdominal pain, abnormal CT results. Findings: 2 portable supine images were obtained of the abdomen. I believe there is some mild streaky discoid atelectasis at both lung bases. A couple surgical clips are seen overlying the lower right lateral chest wall. Correlate with prior surgical history. There appears to be mild prominence of the stomach as well as mild distention of some small bowel overlying the left midabdomen and lower abdomen centered just to the left of midline. It is difficult to accurately compare this portable radiograph with that of the CT, as the CT is much more sensitive. However, partial distal small bowel obstruction cannot be excluded. I do note some air density mixed with stool distally throughout the colon. Numerous surgical clips overlie the upper left pelvis and lower pelvis across the midline. Impression: 1. Nonspecific, but abnormal bowel gas pattern which may be due to a partial distal small bowel obstruction. Definite worsening of the stomach distention and small bowel distention is not appreciated on this portable supine radiograph. 2. Streaky bibasilar discoid atelectasis is seen, right greater than left. 3. Evidence of prior surgery with multiple scattered surgical clips. Correlate with surgical history.
[2016-06-11] MEDS: DEXTROSE 5% -NACL 0.9% 1000 ML + KCl 20 MEQ 1,000 ML IV SCH (15:28)
[2016-06-11] MEDS: Ativan 2 MG/1 ML VIAL IV PRN (19:58)
[2016-06-11] MEDS: Cardizem CD 180 MG PO SCH (21:49)
[2016-06-11] MEDS: Lantus Insulin SQ SCH (21:51)
--- NOTE | 2016-06-11 23:15 | XRAY ---
Exam: Gallbladder ultrasound examination from 06/11/2016. Comparison: Gallbladder ultrasound examination from 04/22/[address] of the abdomen and pelvis without IV contrast from 06/10/2016. Indication: Vomiting. Findings: The pancreas is not well seen. The gallbladder is mildly distended. Posterior layering echogenic gallstones and biliary sludge are seen. The gallbladder wall measures 2.4 mm in thickness which is unremarkable. No pericholecystic edema or fluid is seen. The proximal common bile duct measures 3.1 mm which is normal. No definite intrahepatic biliary duct distention is seen, although the liver parenchyma is less than optimally seen. It would appear that the patient was not able to hold her breath well.. The right kidney measures 10.1 cm in length and reveals no hydronephrosis or dominant cyst or mass. No free fluid is seen within the subhepatic space. Impression: 1. A moderate amount of gallstones and biliary sludge are seen mixed within the posterior dependent portion of the gallbladder lumen. These findings are consistent with cholelithiasis. 2. No significant gallbladder enlargement, gallbladder wall thickening, or biliary duct distention is seen.
[2016-06-12] MEDS: DUONEB 0.5-3 MG/3 ml Neb IH SCH ×3 (01:08→12:54)
[2016-06-12] MEDS: DEXTROSE 5% -NACL 0.9% 1000 ML + KCl 20 MEQ 1,000 ML IV SCH ×4 (02:24→23:55)
[2016-06-12] MEDS: Zofran 4 MG/2 ML VIAL IV PRN ×2 (05:21→15:09)
[2016-06-12 05:46] LABS: Mean Cell Volume 90.3 fl (78-100); Mean Corpuscular Hemoglobin 29.1 pg (26-32); Mean Platelet Volume 8.9 fl (6-9.5); Platelet Count 317 K/mm3 (150-450); Red Blood Count 4.12 M/mm3 (4.1-5.4); Red Cell Distribution Width 14.7 % (11.5-14.0); White Blood Count 7.9 K/mm3 (4.0-10.5)
[2016-06-12 05:58] LABS: INR 1.65 (0.8-3.0); PROTIME 18.2 SECONDS (9.95-12.35)
[2016-06-12 06:24] LABS: ALBUMIN 2.2 g/dL (3.4-5.0); ALKALINE PHOSPHATASE 70 U/L (46-116); ANION GAP 8.6 MEQ/L (5-15); BILIRUBIN,TOTAL 0.3 mg/dL (0.2-1.0); BLOOD UREA NITROGEN 13 mg/dL (9-20); CHLORIDE 106 mEq/L (98-107); Carbon Dioxide 29.8 mEq/L (21-32); Glucose 66 MG/DL (70-110); LIPASE 38 U/L (73-393); Potassium 3.4 mEq/L (3.5-5.1); SGOT/AST 14 U/L (15-37); SODIUM 141 mEq/L (136-145); Total Protein 6.1 gm/dL (6.4-8.2)
[2016-06-12 06:42] LABS: SGPT/ALT 7 U/L (12-78)
[2016-06-12 07:00] LABS: BAND 1 % (0.0-2.0); Platelet Estimate NORMAL (NORMAL); Total Cells Counted 100
[2016-06-12] MEDS: NITRO-DUR 0.2 MG/HR TOP SCH (08:28)
[2016-06-12] MEDS: ROCEPHIN 1 Gm-D5w 50 ml Bag** 50 ML IV SCH (08:28)
[2016-06-12] MEDS: Pepcid 20 MG PO SCH (08:28)
[2016-06-12] MEDS: MS CONTIN 60 MG PO SCH (08:28)
--- NOTE | 2016-06-12 09:12 | PCM.NOTE ---
Date and Time: 06/12/16907 Subjective Assessment: had some flatus yesterday, still has pain and nausea. overall feels terrible, mouth is dry. Objective Exam General Appearance: mild distress Neurologic Exam: alert, oriented x 3 Skin Exam: normal color, warm, dry Respiratory Exam: normal breath sounds, lungs clear, No respiratory distress Cardiovascular Exam: regular rate/rhythm, normal heart sounds Gastrointestinal/Abdomen Exam: soft, No normal bowel sounds (decreased), No tenderness, No distention, No mass OBJECTIVE DATA Vital Signs: Vital Signs - 24 hr Temp Pulse Resp BP Pulse Ox 06/12/16 08:00 94 L 06/12/16 07:59 99.5 F 79 22 151/66 90 L 06/12/16 07:11 78 20 90 L 06/12/16 04:00 98.3 F 75 20 139/60 94 L 06/11/16 23:36 97.7 F 85 20 168/97 96 06/11/16 19:35 98.6 F 77 22 173/75 96 06/11/16 19:20 77 16 94 L 06/11/16 16:00 99.1 F 77 20 142/63 93 L 06/11/16 13:00 72 16 99 06/11/16 11:38 97.8 F 78 20 92 L Oxygen-Last 24 hours O2 Percentage 2 Liters = 28% O2 Percentage 2 Liters = 28% O2 Percentage 2 Liters = 28% O2 Percentage 2 Liters = 28% O2 Percentage 2 Liters = 28% Pain Assessment - Last Documented Pain Intensity 2 Pain Scale Used 0-10 Pain Scale Intake and Output: Intake & Output 06/09/16 06/10/16 06/11/16 06/12/16 11:59 11:59 11:59 11:59 Intake Total 1383 2007 1659 2170 Output Total 500 500 Balance 883 2007 1159 2170 Weight 70.902 kg 70.902 kg Lab Results: Accuchecks Date 06/11/16 Time 22:00 Accucheck Value: 107 Accucheck Value: 109 Accucheck Value: 72 Lab Results-Last 24 Hours 06/11/16 06/12/16 06/12/16 Range/Units 15:07 05:30 05:30 WBC 7.9 (4.0-10.5) K/mm3 RBC 4.12 (4.1-5.4) M/mm3 Hgb 12.0 (12.0-16.0) gm/dl Hct 37.2 (35-47) % MCV 90.3 (78-100) fl MCH 29.1 (26-32) pg MCHC 32.3 (32-36) g/dl RDW 14.7 H (11.5-14.0) % Plt Count 317 (150-450) K/mm3 MPV 8.9 (6-9.5) fl Segmented Neutrophils 81 H (36.0-66.0) % Band Neutrophils 1 (0.0-2.0) % Lymphocytes (Manual) 13 L (24-44) % Monocytes (Manual) 5 (0.0-12.0) % Differential Comment NORMAL Platelet Estimate NORMAL (NORMAL) INR (0.8-3.0) Sodium 141 (136-145) mEq/L Potassium 3.4 L 3.4 L (3.5-5.1) mEq/L Chloride 106 (98-107) mEq/L Carbon Dioxide 29.8 (21-32) mEq/L Anion Gap 8.6 (5-15) MEQ/L BUN 13 (9-20) mg/dL Creatinine 0.58 (0.55-1.30) mg/dl Estimated GFR > 60 ML/MIN Glucose 66 L (70-110) MG/DL Calcium 7.8 L (8.5-10.1) mg/dL Total Bilirubin 0.3 (0.2-1.0) mg/dL AST 14 L (15-37) U/L ALT 7 L (12-78) U/L Alkaline Phosphatase 70 (46-116) U/L Serum Total Protein 6.1 L (6.4-8.2) gm/dL Albumin 2.2 L (3.4-5.0) g/dL Amylase 13 L (25-115) U/L Lipase 38 L (73-393) U/L 06/12/16 Range/Units 05:30 WBC (4.0-10.5) K/mm3 RBC (4.1-5.4) M/mm3 Hgb (12.0-16.0) gm/dl Hct (35-47) % MCV (78-100) fl MCH (26-32) pg MCHC (32-36) g/dl RDW (11.5-14.0) % Plt Count (150-450) K/mm3 MPV (6-9.5) fl Segmented Neutrophils (36.0-66.0) % Band Neutrophils (0.0-2.0) % Lymphocytes (Manual) (24-44) % Monocytes (Manual) (0.0-12.0) % Differential Comment Platelet Estimate (NORMAL) INR 1.65 (0.8-3.0) Sodium (136-145) mEq/L Potassium (3.5-5.1) mEq/L Chloride (98-107) mEq/L Carbon Dioxide (21-32) mEq/L Anion Gap (5-15) MEQ/L BUN (9-20) mg/dL Creatinine (0.55-1.30) mg/dl Estimated GFR ML/MIN Glucose (70-110) MG/DL Calcium (8.5-10.1) mg/dL Total Bilirubin (0.2-1.0) mg/dL AST (15-37) U/L ALT (12-78) U/L Alkaline Phosphatase (46-116) U/L Serum Total Protein (6.4-8.2) gm/dL Albumin (3.4-5.0) g/dL Amylase (25-115) U/L Lipase (73-393) U/L Radiology Exams: Radiology Procedures Category Date Time Status ABDOMEN AND PELVIS W/0 CONTRAS [CT] Urgent Exams 06/10/16 17:34 Completed KUB Routine Exams 06/11/16 07:00 Completed Ultrasound Gallbladder [GALLBLADDER] [US] Routine Exams 06/11/16 07:00 Completed Multi-Disciplinary Progress Notes: Multi-Disciplinary Progress Notes 06/11/16 11:15 (created 06/11/16 14:50) Case Management Note by Kristen Toledo REVIEWED DISCHARGE PLAN. PLANS TO RETURN HOME WITH TO PRE EPISODIC LEVEL OF FNX. DECLINED ADDNL NEEDS AT PRESENT. REVIEWED IMPORTANT MESSAGE FROM [employer]. REPORTS THAT SHE IS NOT UP TO SIGNING ANY PAPERWORK AT PRESENT, REQUESTS TO DO LATER WHEN FEELING BETTER. WILL CONTINUE TO FOLLOW AND ASSESS FOR ALL DC NEEDS. Initialized on 06/11/16 14:50 - END OF NOTE Assessment/Plan (1) Small bowel obstruction Current Visit: Yes Status: Acute Assessment & Plan: keep NPO, continue conservative treatment and observe per surgery. appreciate their input. will add IV morphine for pain control in addition to her duragesic Code(s): K56.69 - OTHER INTESTINAL OBSTRUCTION (2) Cholelithiases Current Visit: Yes Status: Acute (3) Warfarin-induced coagulopathy Current Visit: Yes Status: Acute Assessment & Plan: resolved at this time. Code(s): T45.511A - POISONING BY ANTICOAGULANTS, ACCIDENTAL, INIT; D68.9 - COAGULATION DEFECT, UNSPECIFIED (4) UTI (urinary tract infection) Current Visit: Yes Status: Acute Assessment & Plan: [facility], she is on day 4 Code(s): N39.0 - URINARY TRACT INFECTION, SITE NOT SPECIFIED (5) Confusion Current Visit: Yes Status: Acute Code(s): R41.0 - DISORIENTATION, UNSPECIFIED (6) Hematuria Current Visit: Yes Status: Acute Code(s): R31.9 - HEMATURIA, UNSPECIFIED (7) Atrial fibrillation Current Visit: Yes Status: Acute Code(s): I48.91 - UNSPECIFIED ATRIAL FIBRILLATION (8) Peripheral vascular disease Current Visit: Yes Status: Acute Code(s): I73.9 - PERIPHERAL VASCULAR DISEASE, UNSPECIFIED (9) Diabetes mellitus Current Visit: Yes Status: Acute Assessment & Plan: currently npo, lantus was decreased to 30 units but hypoglycemia persists. continue D5NS and d/c lantus at this time. will cover with SSI if sugars elevate Code(s): E11.9 - TYPE 2 DIABETES MELLITUS WITHOUT COMPLICATIONS (10) COPD exacerbation Current Visit: Yes Status: Acute Code(s): J44.1 - CHRONIC OBSTRUCTIVE PULMONARY DISEASE W (ACUTE) EXACERBATION
--- NOTE | 2016-06-12 09:15 | CONS ---
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 Crandall in the past. He was optimization specialist yesterday evening when they called for question of obstruction. The patient was originally admitted two days ago with hematuria. History of Coumadin coagulopathy with international normalized ratio 6.2 originally. Two days later she had some vomiting. CT showed some fluid filled bowel loops from stool in her colon. She did have a bowel movement yesterday. She was passing some flatus today. They tried to put a NG in last night but the patient refused allowing them to try. At this time she is denying any nausea currently and is feeling more comfortable and said she did pass some flatus today. PAST MEDICAL HISTORY: Heart disease, peripheral artery disease, diabetes, anxiety, history of deep venous thrombosis and hypertension in the past. PAST SURGICAL HISTORY: She had amputation by [facility] surgeon in the past. She had multiple stents. She had hysterectomy for cancer in the past. She has history of bypass in her leg in the past. Again, her local surgeon, Dr. Crandall, did above knee amputation on her. She had port in the past. She had hysterectomy for cancer in the past. MEDICATIONS: Clopidogrel, Fentanyl, NovoLog, Nitro daily, morphine sulfate, warfarin, diltiazem, diclofenac. ALLERGIES: AVAPRO, CYMBALTA, LEVAQUIN, NEURONTIN, PENICILLIN. SOCIAL HISTORY: No smoking or alcohol abuse. REVIEW OF SYSTEMS: Twelve systems reviewed per admission assessment. No history of heart disease or diabetes. PHYSICAL EXAMINATION: GENERAL: A chronically ill female who is on nasal O2. HEENT: Sclera nonicteric. NECK: No JVD. CHEST: Equal excursion, nonlabored breathing. CVS: Regular rate and rhythm. ABDOMEN: Obese, soft. She has chronic ventral hernia that just had some fat contents on CT scan. No rebound. No peritoneal signs. Mild distention. EXTREMITIES: Status post bilateral amputee. NEURO: Alert, moving extremities symmetrically. Initially had hematuria and developed some vomiting, a little bit of cramping and now is feeling some better. Apparently she refused an NG tube. She had some films today that did not show any evidence of any worsening. She did have some gas in the colon, some gas distended bowel loops on CT yesterday when they called Dr. Crandall for consult. It showed some fluid filled loops of bowel, some stool and gas in the colon. Again, she did pass flatus today. She did have a bowel movement yesterday. Potassium is 3.4. She did have urinary infection with white count of 6. IMPRESSION: Question ileus or enteritis with recent urinary tract infection versus viral syndrome versus possible polyps or obstruction. I do feel the patient would benefit from NG decompression however she is refusing at this time. She wants to wait and see how her films do tomorrow. If her problems with that improve will consider having radiologist place NG. Otherwise no emergent surgery necessary as she is passing some flatus. She did have a bowel movement yesterday. She has been in poor health individual but is nontoxic, normal white count, afebrile currently. No peritoneal signs. No need for emergent surgery as this is likely to just be ileus from urinary tract infection rather than partial obstruction. Either way no emergent surgery necessary. I am seeing this patient for Dr. Crandall who was consulted last night. He actually done one of her amputations in the past. No emergent surgery necessary. Check some films tomorrow. If she has any more nausea or vomiting then place NG per radiology. Otherwise the patient was discussed the option of transfer to [facility] due to all of her health problems. Again, this patient was seen for Dr. Crandall who was consulted last night when he was covering Dr. Hinojosa's calls.
[2016-06-12] MEDS: Pepcid 20 MG VIAL IV SCH ×2 (09:49→22:29)
[2016-06-12] MEDS: MORPHINE SULFATE 10 MG/ML IV PRN ×3 (10:09→17:59)
[2016-06-12] MEDS: Ativan 2 MG/1 ML VIAL IV PRN ×4 (10:10→19:19)
--- NOTE | 2016-06-12 11:47 | XRAY ---
Exam: Portable AP supine abdomen film from 06/12/2016. Comparison: Portable supine abdomen film from 06/11/2016 and portable AP chest film from 06/08/2016. Indication: NG tube placement. Findings: The the image was centered over the lower chest and upper abdomen. NG tube is seen extending into the stomach with the tip pointing toward the left against the greater curvature aspect of the upper body of the stomach. The gap marker of the NG tube appears to be beyond the gastroesophageal junction. Left-sided zackary catheter is again seen with the tip extending into the SVC. There appears to be moderate bibasilar discoid atelectasis at the medial aspect of both lung bases, right greater than left. This was noted on a prior CT of the abdomen and pelvis from 06/10/2016 as well. Not much of the bowel gas pattern has been included within the upper abdomen. Of that seen, it is nonspecific. Impression: 1. Successful placement of NG tube with tip against greater curvature aspect of upper body of stomach pointing toward the left. 2. Discoid atelectasis is seen at the medial aspect of each lung base, right greater than left.
--- NOTE | 2016-06-12 12:02 | XRAY ---
1.01 fluoroscopy time for NG tube placement.
--- NOTE | 2016-06-12 12:06 | XRAY ---
Exam: C-arm fluoroscopy for NG tube placement from 06/12/2016. Findings: 1.01 minutes of fluoroscopy time was utilized. A lateral C-arm image of the patient's posterior oropharynx, nasopharynx, and hypopharynx appeared unremarkable. Upon introduction of the NG tube into the left nostril, the patient was asked to tuck her chin and swallow a small amount of water. The NG tube coursed down the nasopharynx into the proximal cervical esophagus and off the inferior margin of the [id number]. The nurse that was placing the NG tube thought that it was placed far enough to probably reach the stomach. A subsequent portable KUB was performed which documented the NG tube tip to be in the stomach. Impression: 1. As above.
[2016-06-12] MEDS: Cardizem CD 180 MG PO SCH (22:29)
[2016-06-12] MEDS ORDERED: D50W 50 ml Abboject IV ONE (23:00)
[2016-06-13] MEDS: MORPHINE SULFATE 10 MG/ML IV PRN ×5 (05:46→22:54)
[2016-06-13 05:50] LABS: BASOPHIL % 0.4 % (0.0-0.4); Eosinophil % 2.6 % (0.00-5.0); Granulocytes % 63.7 % (36.0-66.0); Lymphocytes % 13.9 % (24.0-44.0); Mean Cell Volume 90.4 fl (78-100); Mean Corpuscular Hemoglobin 28.8 pg (26-32); Mean Platelet Volume 8.9 fl (6-9.5); Monocytes % 19.4 % (0.0-12.0); Platelet Count 259 K/mm3 (150-450); Red Blood Count 3.75 M/mm3 (4.1-5.4); Red Cell Distribution Width 14.9 % (11.5-14.0); White Blood Count 7.4 K/mm3 (4.0-10.5)
[2016-06-13 06:07] LABS: INR 1.39 (0.8-3.0); PROTIME 15.4 SECONDS (9.95-12.35)
[2016-06-13 06:16] LABS: ALBUMIN 1.9 g/dL (3.4-5.0); ALKALINE PHOSPHATASE 64 U/L (46-116); ANION GAP 9.8 MEQ/L (5-15); BILIRUBIN,TOTAL 0.3 mg/dL (0.2-1.0); BLOOD UREA NITROGEN 12 mg/dL (9-20); CHLORIDE 109 mEq/L (98-107); Carbon Dioxide 25.6 mEq/L (21-32); Glucose 66 MG/DL (70-110); MAGNESIUM 1.4 mg/dL (1.8-2.4); Potassium 3.8 mEq/L (3.5-5.1); SGOT/AST 12 U/L (15-37); SODIUM 141 mEq/L (136-145); Total Protein 5.3 gm/dL (6.4-8.2)
[2016-06-13 06:57] LABS: SGPT/ALT < 6 U/L (12-78)
--- NOTE | 2016-06-13 08:28 | PCM.NOTE ---
Date and Time: 06/13/16821 Subjective Assessment: patient still with significant NG output, feels poorly but improved. pain is better controlled, no nausea today Objective Exam General Appearance: no apparent distress, alert Respiratory Exam: normal breath sounds, lungs clear, No respiratory distress Cardiovascular Exam: regular rate/rhythm, normal heart sounds Gastrointestinal/Abdomen Exam: soft, No normal bowel sounds, No tenderness, No distention, No mass, No guarding OBJECTIVE DATA Vital Signs: Vital Signs - 24 hr Temp Pulse Resp BP Pulse Ox 06/13/16 07:04 98.4 F 70 20 148/65 91 L 06/13/16 04:00 98.7 F 68 16 161/70 96 06/12/16 23:37 98.7 F 67 19 126/60 95 06/12/16 20:00 98.4 F 66 18 139/71 96 06/12/16 19:51 73 20 96 06/12/16 16:00 99 F 78 20 143/64 95 06/12/16 12:57 91 H 20 92 L 06/12/16 11:24 99.3 F 99 H 20 144/80 95 Oxygen-Last 24 hours O2 Percentage 3 Liters = 32% O2 Percentage 3 Liters = 32% O2 Percentage 3 Liters = 32% O2 Percentage 3 Liters = 32% O2 Percentage 2 Liters = 28% O2 Percentage 2 Liters = 28% Pain Assessment - Last Documented Pain Intensity 4 Pain Scale Used 0-10 Pain Scale Intake and Output: Intake & Output 06/10/16 06/11/16 06/12/16 06/13/16 11:59 11:59 11:59 11:59 Intake Total 2007 1659 2170 3613 Output Total 500 2800 Balance 2007 1159 2170 813 Weight 70.902 kg Lab Results: Accuchecks Date 06/13/16 Date 06/12/16 Date 06/12/16 Date 06/12/16 Time 07:06 Time 22:00 Time 16:30 Time 11:20 Accucheck Value: 67 Accucheck Value: 68 Accucheck Value: 81 Accucheck Value: 83 Lab Results-Last 24 Hours 06/13/16 06/13/16 06/13/16 Range/Units 05:20 05:20 05:20 WBC 7.4 (4.0-10.5) K/mm3 RBC 3.75 L (4.1-5.4) M/mm3 Hgb 10.8 L (12.0-16.0) gm/dl Hct 33.9 L (35-47) % MCV 90.4 (78-100) fl MCH 28.8 (26-32) pg MCHC 31.9 L (32-36) g/dl RDW 14.9 H (11.5-14.0) % Plt Count 259 (150-450) K/mm3 MPV 8.9 (6-9.5) fl Gran % 63.7 (36.0-66.0) % Lymphocytes % 13.9 L (24.0-44.0) % Monocytes % 19.4 H (0.0-12.0) % Eosinophils % 2.6 (0.00-5.0) % Basophils % 0.4 (0.0-0.4) % Basophils # 0.03 (0-0.4) INR 1.39 (0.8-3.0) Sodium 141 (136-145) mEq/L Potassium 3.8 (3.5-5.1) mEq/L Chloride 109 H (98-107) mEq/L Carbon Dioxide 25.6 (21-32) mEq/L Anion Gap 9.8 (5-15) MEQ/L BUN 12 (9-20) mg/dL Creatinine 0.50 L (0.55-1.30) mg/dl Estimated GFR > 60 ML/MIN Glucose 66 L (70-110) MG/DL Calcium 7.3 L (8.5-10.1) mg/dL Magnesium 1.4 L (1.8-2.4) mg/dL Total Bilirubin 0.3 (0.2-1.0) mg/dL AST 12 L (15-37) U/L ALT < 6 L (12-78) U/L Alkaline Phosphatase 64 (46-116) U/L Serum Total Protein 5.3 L (6.4-8.2) gm/dL Albumin 1.9 L (3.4-5.0) g/dL Radiology Exams: Radiology Procedures Category Date Time Status FLUOROSCOPY LESS THAN 1 HR Urgent Exams 06/12/16 10:00 Completed KUB Stat Exams 06/12/16 11:00 Completed NG TUBE PLACEMENT Routine Exams 06/12/16 Completed Assessment/Plan (1) Small bowel obstruction Current Visit: Yes Status: Acute Assessment & Plan: no bowel sounds present, no bowel movement or flatus today or yesterday. appreciate surgery input. repeat KUB tomorrow Code(s): K56.69 - OTHER INTESTINAL OBSTRUCTION (2) Cholelithiases Current Visit: Yes Status: Acute (3) Warfarin-induced coagulopathy Current Visit: Yes Status: Acute Assessment & Plan: resolved, INR nearly normalized, will cover with lovenox 40mg daily since no apparent surgical intervention is planned Code(s): T45.511A - POISONING BY ANTICOAGULANTS, ACCIDENTAL, INIT; D68.9 - COAGULATION DEFECT, UNSPECIFIED (4) UTI (urinary tract infection) Current Visit: Yes Status: Acute Assessment & Plan: on rocephin Code(s): N39.0 - URINARY TRACT INFECTION, SITE NOT SPECIFIED (5) Confusion Current Visit: Yes Status: Acute Code(s): R41.0 - DISORIENTATION, UNSPECIFIED (6) Hematuria Current Visit: Yes Status: Acute Code(s): R31.9 - HEMATURIA, UNSPECIFIED (7) Atrial fibrillation Current Visit: Yes Status: Acute Code(s): I48.91 - UNSPECIFIED ATRIAL FIBRILLATION (8) Peripheral vascular disease Current Visit: Yes Status: Acute Code(s): I73.9 - PERIPHERAL VASCULAR DISEASE, UNSPECIFIED (9) Diabetes mellitus Current Visit: Yes Status: Acute Code(s): E11.9 - TYPE 2 DIABETES MELLITUS WITHOUT COMPLICATIONS (10) COPD exacerbation Current Visit: Yes Status: Acute Code(s): J44.1 - CHRONIC OBSTRUCTIVE PULMONARY DISEASE W (ACUTE) EXACERBATION
[2016-06-13] MEDS: Magnesium 1 Gm / 100 Ml D5W*** 100 ML IV SCH ×2 (09:00→10:54)
[2016-06-13] MEDS: DURAGESIC TOP SCH (09:04)
[2016-06-13] MEDS: NITRO-DUR 0.2 MG/HR TOP SCH (09:07)
[2016-06-13] MEDS: DEXTROSE 5% -NACL 0.9% 1000 ML + KCl 20 MEQ 1,000 ML IV SCH ×2 (09:07→22:33)
[2016-06-13] MEDS: Pepcid 20 MG VIAL IV SCH ×2 (09:09→21:58)
[2016-06-13] MEDS: ENOXAPARIN SODIUM SQ SCH (09:10)
[2016-06-13] MEDS: ROCEPHIN 1 Gm-D5w 50 ml Bag** 50 ML IV SCH (09:54)
[2016-06-13] MEDS ORDERED: Glutose 15 GM ORAL GEL PO PRN (11:32)
[2016-06-13] MEDS ORDERED: GlucaGen 1 MG IM PRN (11:32)
[2016-06-13] MEDS ORDERED: D50W 50 ml Abboject IV PRN (11:32)
[2016-06-13] MEDS: CHLORASEPTIC SPRAY 180 ML PO PRN (14:49)
[2016-06-13] MEDS: Cardizem CD 180 MG PO SCH (21:58)
[2016-06-14] MEDS: CHLORASEPTIC SPRAY 180 ML PO PRN ×3 (02:19→11:56)
[2016-06-14 05:53] LABS: Mean Cell Volume 89.6 fl (78-100); Mean Platelet Volume 8.9 fl (6-9.5); Platelet Count 239 K/mm3 (150-450); Red Blood Count 3.67 M/mm3 (4.1-5.4); Red Cell Distribution Width 14.6 % (11.5-14.0)
[2016-06-14 06:00] LABS: Mean Corpuscular Hemoglobin 28.8 pg (26-32)
[2016-06-14 06:32] LABS: ALBUMIN 1.7 g/dL (3.4-5.0); ALKALINE PHOSPHATASE 65 U/L (46-116); ANION GAP 9.2 MEQ/L (5-15); BILIRUBIN,TOTAL 0.4 mg/dL (0.2-1.0); BLOOD UREA NITROGEN 9 mg/dL (9-20); CHLORIDE 108 mEq/L (98-107); Carbon Dioxide 25.3 mEq/L (21-32); Glucose 84 MG/DL (70-110); MAGNESIUM 1.8 mg/dL (1.8-2.4); Potassium 3.9 mEq/L (3.5-5.1); SGOT/AST 12 U/L (15-37); SODIUM 139 mEq/L (136-145); Total Protein 5.1 gm/dL (6.4-8.2)
[2016-06-14 06:45] LABS: SGPT/ALT 9 U/L (12-78)
[2016-06-14 06:57] LABS: ANISOCYTOSIS 1+; BAND 1 % (0.0-2.0); Eosinophil 3 % (0.00-3.0); Poikilocytosis 1+; Total Cells Counted 100
[2016-06-14 06:58] LABS: Platelet Estimate NORMAL (NORMAL)
--- NOTE | 2016-06-14 07:21 | PCM.NOTE ---
Date and Time: 06/14/16718 Subjective Assessment: patient passed some flatus last night, overall feeling a little better. had 450mL out of NG yesterday, 150mL overnight. no bowel movement. stomach feels less distended Objective Exam General Appearance: no apparent distress, alert Respiratory Exam: normal breath sounds, lungs clear, No respiratory distress Cardiovascular Exam: regular rate/rhythm, normal heart sounds Gastrointestinal/Abdomen Exam: normal bowel sounds, No tenderness, No distention , No mass, No guarding Extremity Exam: normal inspection, normal range of motion OBJECTIVE DATA Vital Signs: Vital Signs - 24 hr Temp Pulse Resp BP Pulse Ox 06/14/16 04:00 98.4 F 70 15 131/76 98 06/13/16 23:55 98.7 F 68 20 133/63 96 06/13/16 20:00 98.8 F 78 18 140/65 98 06/13/16 19:53 94 L 06/13/16 15:48 97.8 F 76 20 138/78 92 L 06/13/16 15:11 93 L 06/13/16 10:55 98 F 78 18 140/76 94 L Oxygen-Last 24 hours O2 Percentage 3 Liters = 32% O2 Percentage 3 Liters = 32% O2 Percentage 3 Liters = 32% O2 Percentage 3 Liters = 32% Pain Assessment - Last Documented Pain Intensity 6 Pain Scale Used [facility] Intake and Output: Intake & Output 06/11/16 06/12/16 06/13/16 06/14/16 11:59 11:59 11:59 11:59 Intake Total 1659 2170 3613 2259 Output Total 500 2800 1200 Balance 1159 2170 813 1059 Weight 70.902 kg Lab Results: Accuchecks Date 06/13/16 Date 06/13/16 Time 22:00 Time 10:55 Accucheck Value: 72 Accucheck Value: 71 Accucheck Value: 63 Lab Results-Last 24 Hours 06/14/16 06/14/16 Range/Units 05:15 05:15 WBC 7.0 (4.0-10.5) K/mm3 RBC 3.67 L (4.1-5.4) M/mm3 Hgb 10.6 L (12.0-16.0) gm/dl Hct 32.9 L (35-47) % MCV 89.6 (78-100) fl MCH 28.8 (26-32) pg MCHC 32.2 (32-36) g/dl RDW 14.6 H (11.5-14.0) % Plt Count 239 (150-450) K/mm3 MPV 8.9 (6-9.5) fl Segmented Neutrophils 72 H (36.0-66.0) % Band Neutrophils 1 (0.0-2.0) % Lymphocytes (Manual) 21 L (24-44) % Monocytes (Manual) 3 (0.0-12.0) % Eosinophils (Manual) 3 (0.00-3.0) % Platelet Estimate NORMAL (NORMAL) Poikilocytosis 1+ Anisocytosis 1+ Sodium 139 (136-145) mEq/L Potassium 3.9 (3.5-5.1) mEq/L Chloride 108 H (98-107) mEq/L Carbon Dioxide 25.3 (21-32) mEq/L Anion Gap 9.2 (5-15) MEQ/L BUN 9 (9-20) mg/dL Creatinine 0.51 L (0.55-1.30) mg/dl Estimated GFR > 60 ML/MIN Glucose 84 (70-110) MG/DL Calcium 6.9 L (8.5-10.1) mg/dL Magnesium 1.8 (1.8-2.4) mg/dL Total Bilirubin 0.4 (0.2-1.0) mg/dL AST 12 L (15-37) U/L ALT 9 L (12-78) U/L Alkaline Phosphatase 65 (46-116) U/L Serum Total Protein 5.1 L (6.4-8.2) gm/dL Albumin 1.7 L (3.4-5.0) g/dL Radiology Exams: Radiology Procedures Category Date Time Status FLUOROSCOPY LESS THAN 1 HR Urgent Exams 06/12/16 10:00 Completed KUB Routine Exams 06/14/16 07:00 Ordered KUB Stat Exams 06/12/16 11:00 Completed Multi-Disciplinary Progress Notes: Multi-Disciplinary Progress Notes 06/13/16 14:15 Nutrition Note by Polly Gallardo NUTRITION F/U: pt presented with UTI, hematuria. hx DM, HTN, DVT, PVD, uterine CA, bilateral AKA. Mg 1.4, cl 109, glu 66, hgb 10.8, total pro 5.3, alb 1.9. Pt now NPO X3 days d/t possible intestinal obstruction. No surgical interventions planned. Noted: Pt with ~5# wt gain. Receiving IV fluids. Pt with increased energy needs as r/t infection a/e/b dx. goal #1) glu wnl: not meeting--66 mg/dl; #2) maintain po intake >=75%: not meeting--NPO x3 NEW: Inadequate energy intake r/t no nutrition aeb NPO. Recommend alternate nutrition feeding method if unable to resume PO diet within 1-[address] will monitor, f/u prn. CHINEDU Martinez Initialized on 06/13/16 14:15 - END OF NOTE Assessment/Plan (1) Small bowel obstruction Current Visit: Yes Status: Acute Assessment & Plan: shows some improvement today, passing flatus and has more bowel sounds on exam today. may consider clamping if ok with surgery. Code(s): K56.69 - OTHER INTESTINAL OBSTRUCTION (2) Cholelithiases Current Visit: Yes Status: Acute (3) Warfarin-induced coagulopathy Current Visit: Yes Status: Acute Assessment & Plan: resolved, on prophylactic lovenox Code(s): T45.511A - POISONING BY ANTICOAGULANTS, ACCIDENTAL, INIT; D68.9 - COAGULATION DEFECT, UNSPECIFIED (4) UTI (urinary tract infection) Current Visit: Yes Status: Acute Assessment & Plan: on rocephin Code(s): N39.0 - URINARY TRACT INFECTION, SITE NOT SPECIFIED (5) Confusion Current Visit: Yes Status: Acute Code(s): R41.0 - DISORIENTATION, UNSPECIFIED (6) Hematuria Current Visit: Yes Status: Acute Code(s): R31.9 - HEMATURIA, UNSPECIFIED (7) Atrial fibrillation Current Visit: Yes Status: Acute Code(s): I48.91 - UNSPECIFIED ATRIAL FIBRILLATION (8) Peripheral vascular disease Current Visit: Yes Status: Acute Code(s): I73.9 - PERIPHERAL VASCULAR DISEASE, UNSPECIFIED (9) Diabetes mellitus Current Visit: Yes Status: Acute Code(s): E11.9 - TYPE 2 DIABETES MELLITUS WITHOUT COMPLICATIONS (10) COPD exacerbation Current Visit: Yes Status: Acute Code(s): J44.1 - CHRONIC OBSTRUCTIVE PULMONARY DISEASE W (ACUTE) EXACERBATION
--- NOTE | 2016-06-14 08:33 | XRAY ---
Indication: Abdomen pain. Follow-up NG tube placement. Comparison: June 12, 2016. Portable KUB again demonstrates NG tube today slightly withdrawn and appears to be coiled in a small hiatal hernia. Bowel gas pattern nonspecific and nonobstructed. Solid organs again poorly visualized due to body habitus.
[2016-06-14] MEDS: MORPHINE SULFATE 10 MG/ML IV PRN ×3 (09:16→21:45)
[2016-06-14] MEDS: DEXTROSE 5% -NACL 0.9% 1000 ML + KCl 20 MEQ 1,000 ML IV SCH ×2 (09:17→21:01)
[2016-06-14] MEDS: ROCEPHIN 1 Gm-D5w 50 ml Bag** 50 ML IV SCH (09:43)
[2016-06-14] MEDS: NITRO-DUR 0.2 MG/HR TOP SCH (09:43)
[2016-06-14] MEDS: ENOXAPARIN SODIUM SQ SCH (09:43)
[2016-06-14] MEDS: Pepcid 20 MG VIAL IV SCH ×2 (09:43→21:47)
[2016-06-14] MEDS: Ativan 2 MG/1 ML VIAL IV PRN ×2 (11:50→22:01)
[2016-06-14] MEDS ORDERED: MORPHINE SULFATE 10 MG/ML IV ONE (12:24)
[2016-06-14] MEDS ORDERED: TRANDATE 100MG/20 ML MDV IV ONE (16:04)
[2016-06-14] MEDS: Zofran 4 MG/2 ML VIAL IV PRN (19:51)
[2016-06-14] MEDS: Cardizem CD 180 MG PO SCH (21:47)
[2016-06-15] MEDS: MORPHINE SULFATE 10 MG/ML IV PRN ×3 (03:55→20:50)
[2016-06-15] MEDS: DEXTROSE 5% -NACL 0.9% 1000 ML + KCl 20 MEQ 1,000 ML IV SCH (06:51)
[2016-06-15] MEDS: Ativan 2 MG/1 ML VIAL IV PRN ×3 (08:00→20:37)
[2016-06-15] MEDS ORDERED: PHARMACY DOSING REQUEST MC ONE (09:39)
[2016-06-15] MEDS: ENOXAPARIN SODIUM SQ SCH (09:44)
[2016-06-15] MEDS: NITRO-DUR 0.2 MG/HR TOP SCH (09:44)
[2016-06-15] MEDS: Pepcid 20 MG VIAL IV SCH ×2 (09:45→22:06)
[2016-06-15] MEDS: ROCEPHIN 1 Gm-D5w 50 ml Bag** 50 ML IV SCH (09:45)
--- NOTE | 2016-06-15 09:50 | PCM.NOTE ---
Date and Time: 06/15/1644 Subjective Assessment: She reports she is passing gas, but she continues to require the NG tube to suction to prevent nausea. Dr. Quispe saw her today and there is no plan to let her eat today due to the small bowel obstruction. Her notes that she has had some confusion and thinks it is related to her not eating. - Review of Systems Constitutional: Fatigue Eyes: No Symptoms Ears, Nose, & Throat: No Symptoms Respiratory: Cough Cardiac: No Symptoms Abdominal/Gastrointestinal: Abdominal Pain, Nausea, No Diarrhea Genitourinary Symptoms: No Symptoms Musculoskeletal: No Symptoms Skin: No Symptoms Objective Exam General Appearance: no apparent distress, other ( at bedside) Neurologic Exam: alert, cooperative, normal mood/affect Skin Exam: normal color, warm, dry Cardiovascular Exam: other (tachycardic), No murmur, No friction rub, No gallop Gastrointestinal/Abdomen Exam: soft, other (no bowel sounds, mild tenderness), No distention, No mass, No guarding Extremity Exam: other (bilat above the knee amputations) OBJECTIVE DATA Vital Signs: Vital Signs - 24 hr Temp Pulse Resp BP Pulse Ox 06/15/16 07:36 98.4 F 83 18 134/59 91 L 06/15/16 04:00 99.4 F 136 H 20 106/58 93 L 06/14/16 23:45 98.6 F 140 H 15 102/62 92 L 06/14/16 19:56 98.1 F 143 H 21 120/66 94 L 06/14/16 16:00 98.9 F 138 H 18 117/68 95 06/14/16 15:00 95 06/14/16 12:00 99.3 F 82 18 174/73 96 Oxygen-Last 24 hours O2 Percentage 3 Liters = 32% O2 Percentage 3 Liters = 32% O2 Percentage 3 Liters = 32% O2 Percentage 3 Liters = 32% O2 Percentage 3 Liters = 32% O2 Percentage 3 Liters = 32% Pain Assessment - Last Documented Pain Intensity 7 Pain Scale Used 0-10 Pain Scale Intake and Output: Intake & Output 06/13/16 06/14/16 06/15/16 06/16/16 06:59 06:59 06:59 06:59 Intake Total 9813 3559 3312 Output Total 2800 1200 500 Balance 813 1059 1912 Lab Results: Accuchecks Date 06/14/16 Date 06/14/16 Date 06/14/16 Time 16:30 Time 11:30 Accucheck Value: 224 Accucheck Value: 159 Accucheck Value: 111 Radiology Exams: Radiology Procedures Category Date Time Status ABDOMEN 2 VIEW Routine Exams 06/16/16 06:00 Ordered KUB Routine Exams 06/14/16 07:00 Completed Assessment/Plan (1) Small bowel obstruction Current Visit: Yes Status: Acute Assessment & Plan: Continue management per general surgery and start TPN in her central port for nutrition as she has not eaten since last weekend and it looks like she will still have the NG for at least today and tomorrow. Discussed risks with family and patient including damage to the liver and risk of infection. They are agreeable to starting TPN as recommended by the fast food attendant. Will run total fluids at 100 mL/hr. Discussed with pharmacistHany. Code(s): K56.69 - OTHER INTESTINAL OBSTRUCTION (2) Atrial fibrillation Current Visit: Yes Status: Acute Assessment & Plan: Will give extra dose or oral cardizem today to try to help with rate control and increase dose of cardizem at night. She is currently off anticoagulation except for DVT prophylaxis. Her INR is in the normal range now. Code(s): I48.91 - UNSPECIFIED ATRIAL FIBRILLATION (3) Peripheral vascular disease Current Visit: Yes Status: Acute Assessment & Plan: Currently hold plavix incase patient needs emergent surgery. When ok with surgeon, will restart plavix. 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 Will use a low dose sliding scale right now. Code(s): E11.9 - TYPE 2 DIABETES MELLITUS WITHOUT COMPLICATIONS (5) UTI (urinary tract infection) Current Visit: Yes Status: Acute Assessment & Plan: She has received 7 days of ceftriaxone so will stop this today. Code(s): N39.0 - URINARY TRACT INFECTION, SITE NOT SPECIFIED
[2016-06-15] MEDS ORDERED: Cardizem 30 MG PO ONE (10:00)
[2016-06-15] MEDS ORDERED: INTRALIPID 20% 250 ML 250 ML, TPN Electrolytes 40 ML, Multitrace-4 Conc Vial 1 ML*** 1 ... IV SCH ×5 (12:00)
[2016-06-15] MEDS: NovoLOG Insulin SQ PRN (17:44)
[2016-06-15] MEDS: DUONEB 0.5-3 MG/3 ml Neb IH PRN (18:43)
[2016-06-15] MEDS: Cardizem CD 240 MG PO SCH (22:06)
[2016-06-16] MEDS: DEXTROSE 5% -NACL 0.9% 1000 ML + KCl 20 MEQ 1,000 ML IV SCH (02:08)
[2016-06-16] MEDS: NovoLOG Insulin SQ PRN ×4 (08:17→21:51)
--- NOTE | 2016-06-16 08:32 | PCM.NOTE ---
Date and Time: 06/16/16830 Subjective Assessment: doing ok today, NG tube is out. no vomiting today. surgery recommending enema today. has some flatus Objective Exam General Appearance: no apparent distress, alert Skin Exam: normal color, warm, dry Respiratory Exam: normal breath sounds, lungs clear, No respiratory distress Cardiovascular Exam: regular rate/rhythm, normal heart sounds Gastrointestinal/Abdomen Exam: soft, No tenderness, No distention, No guarding Extremity Exam: normal inspection OBJECTIVE DATA Vital Signs: Vital Signs - 24 hr Temp Pulse Resp BP Pulse Ox 06/16/16 07:38 74 18 92 L 06/16/16 07:13 98.1 F 74 18 150/64 92 L 06/16/16 03:49 98.1 F 80 19 150/67 91 L 06/16/16 00:00 99.0 F 87 19 124/88 93 L 06/15/16 20:00 98.2 F 82 18 171/73 94 L 06/15/16 19:20 80 19 94 L 06/15/16 16:00 98.8 F 74 20 131/60 91 L 06/15/16 11:39 98.6 F 76 17 150/66 94 L 06/15/16 11:10 93 L Oxygen-Last 24 hours O2 Percentage 3 Liters = 32% Pain Assessment - Last Documented Pain Intensity 6 [facility] Intake and Output: Intake & Output 06/13/16 06/14/16 06/15/16 06/16/16 11:59 11:59 11:59 11:59 Intake Total 3613 2259 2412 2602 Output Total 2800 1300 400 0 Balance 850 588 5370 2601 Weight 7635.774 kg Lab Results: Accuchecks Date 06/16/16 Date 06/15/16 Date 06/15/16 Date 06/15/16 Time 07:30 Time 21:30 Time 16:36 Time 11:30 Accucheck Value: 230 Accucheck Value: 170 Accucheck Value: 228 Accucheck Value: 154 Radiology Exams: Radiology Procedures Category Date Time Status ABDOMEN 2 VIEW Routine Exams 06/16/16 06:00 Taken Assessment/Plan (1) Small bowel obstruction Current Visit: Yes Status: Acute Assessment & Plan: on TPN, being treated conservatively. Code(s): K56.69 - OTHER INTESTINAL OBSTRUCTION (2) Cholelithiases Current Visit: Yes Status: Acute (3) Warfarin-induced coagulopathy Current Visit: Yes Status: Acute Code(s): T45.511A - POISONING BY ANTICOAGULANTS, ACCIDENTAL, INIT; D68.9 - COAGULATION DEFECT, UNSPECIFIED (4) UTI (urinary tract infection) Current Visit: Yes Status: Acute Assessment & Plan: completed 7 days or rocephin Code(s): N39.0 - URINARY TRACT INFECTION, SITE NOT SPECIFIED (5) Confusion Current Visit: Yes Status: Acute Code(s): R41.0 - DISORIENTATION, UNSPECIFIED (6) Hematuria Current Visit: Yes Status: Acute Code(s): R31.9 - HEMATURIA, UNSPECIFIED (7) Atrial fibrillation Current Visit: Yes Status: Acute Code(s): I48.91 - UNSPECIFIED ATRIAL FIBRILLATION (8) Peripheral vascular disease Current Visit: Yes Status: Acute Code(s): I73.9 - PERIPHERAL VASCULAR DISEASE, UNSPECIFIED (9) Diabetes mellitus Current Visit: Yes Status: Acute Qualifiers: Diabetes mellitus type: type 2 Diabetes mellitus complication status: with circulatory complication Diabetes mellitus complication detail: with other circulatory complications Diabetes mellitus half-way insulin use: with half-way use Qualified Code(s): E11.59 - Type 2 diabetes mellitus with other circulatory complications; Z79.4 - detention (current) use of insulin Code(s): E11.9 - TYPE 2 DIABETES MELLITUS WITHOUT COMPLICATIONS (10) COPD exacerbation Current Visit: Yes Status: Acute Code(s): J44.1 - CHRONIC OBSTRUCTIVE PULMONARY DISEASE W (ACUTE) EXACERBATION
--- NOTE | 2016-06-16 09:13 | XRAY ---
Indication: Follow-up small bowel obstruction. Comparison: KUB June 14, 2016. 2 view abdomen again demonstrates nonspecific and nonobstructed bowel gas pattern. No free air. Solid organs again poorly visualized due to body habitus. Previous NG tube not seen presumed removed in the interim. Stable pelvic postsurgical changes and scattered vascular calcifications. Impression: Nonacute nonobstructed limited abdomen.
[2016-06-16] MEDS: DURAGESIC TOP SCH (09:48)
[2016-06-16] MEDS: NITRO-DUR 0.2 MG/HR TOP SCH (09:52)
[2016-06-16] MEDS: Pepcid 20 MG VIAL IV SCH ×2 (09:58→21:52)
[2016-06-16] MEDS ORDERED: Dulcolax 10 MG SUPP PR SCH (10:00)
[2016-06-16] MEDS: ENOXAPARIN SODIUM SQ SCH (10:11)
[2016-06-16] MEDS: MORPHINE SULFATE 10 MG/ML IV PRN ×2 (11:48→21:59)
[2016-06-16] MEDS: INTRALIPID 20% 250 ML 250 ML, TPN Electrolytes 40 ML, Multitrace-4 Conc Vial 1 ML*** 1 ... IV SCH ×5 (13:52)
[2016-06-16] MEDS ORDERED: TRANDATE 100MG/20 ML MDV IV ONE (14:00)
[2016-06-16] MEDS: Cardizem CD 240 MG PO SCH (21:52)
[2016-06-17 05:38] LABS: Mean Cell Volume 87.8 fl (78-100); Mean Platelet Volume 9.2 fl (6-9.5); Platelet Count 195 K/mm3 (150-450); Red Blood Count 3.92 M/mm3 (4.1-5.4)
[2016-06-17 05:50] LABS: INR 1.26 (0.8-3.0)
[2016-06-17] MEDS: DEXTROSE 5% -NACL 0.9% 1000 ML + KCl 20 MEQ 1,000 ML IV SCH ×2 (05:51→07:19)
[2016-06-17 05:53] LABS: Mean Corpuscular Hemoglobin 28.5 pg (26-32)
[2016-06-17 05:58] LABS: ALBUMIN 1.6 g/dL (3.4-5.0); ANION GAP 14.6 MEQ/L (5-15); BLOOD UREA NITROGEN 14 mg/dL (9-20); CHLORIDE 104 mEq/L (98-107); Carbon Dioxide 22.6 mEq/L (21-32); Glucose 301 MG/DL (70-110); MAGNESIUM 1.7 mg/dL (1.8-2.4); Potassium 3.7 mEq/L (3.5-5.1); SODIUM 138 mEq/L (136-145); Total Protein 5.4 gm/dL (6.4-8.2)
[2016-06-17] MEDS: Zofran 4 MG/2 ML VIAL IV PRN ×2 (07:10→21:43)
[2016-06-17] MEDS ORDERED: Dulcolax 10 MG SUPP PR ONE (08:04)
--- NOTE | 2016-06-17 08:04 | PCM.NOTE ---
Date and Time: 06/17/16 0802 Subjective Assessment: patient still with some nausea but so far tolerating clears, abdomen xray yesterday shows no obstruction. had a small bm with hard small stool Objective Exam General Appearance: no apparent distress, alert Skin Exam: normal color, warm, dry Respiratory Exam: normal breath sounds, lungs clear, No respiratory distress Cardiovascular Exam: regular rate/rhythm, normal heart sounds Gastrointestinal/Abdomen Exam: soft, normal bowel sounds, No tenderness, No mass OBJECTIVE DATA Vital Signs: Vital Signs - 24 hr Temp Pulse Resp BP Pulse Ox 06/17/16 07:06 88 18 93 L 06/17/16 04:00 98.6 F 82 19 152/66 92 L 06/17/16 00:00 98.8 F 86 19 164/73 93 L 06/16/16 19:50 99.3 F 75 14 122/57 92 L 06/16/16 18:23 72 20 92 L 06/16/16 16:00 99.0 F 72 18 121/55 93 L 06/16/16 12:00 98.2 F 147 H 18 133/67 92 L Oxygen-Last 24 hours O2 Percentage 2 Liters = 28% Pain Assessment - Last Documented Pain Intensity 9 Pain Scale Used 0-10 Pain Scale Intake and Output: Intake & Output 06/14/16 06/15/16 06/16/16 06/17/16 11:59 11:59 11:59 11:59 Intake Total 2259 2412 2602 2210 Output Total 1300 400 0 Balance 959 2011 2602 2210 Weight 7635.774 kg 77.337 kg Lab Results: Accuchecks Date 06/16/16 Date 06/16/16 Date 06/16/16 Time 16:30 Time 11:30 Accucheck Value: 251 Accucheck Value: 319 Accucheck Value: 235 Lab Results-Last 24 Hours 06/17/16 06/17/16 06/17/16 Range/Units 05:18 05:18 05:18 WBC 11.0 H (4.0-10.5) K/mm3 RBC 3.92 L (4.1-5.4) M/mm3 Hgb 11.2 L (12.0-16.0) gm/dl Hct 34.4 L (35-47) % MCV 87.8 (78-100) fl MCH 28.5 (26-32) pg MCHC 32.6 (32-36) g/dl RDW 15.0 H (11.5-14.0) % Plt Count 195 (150-450) K/mm3 MPV 9.2 (6-9.5) fl INR 1.26 (0.8-3.0) Sodium 138 (136-145) mEq/L Potassium 3.7 (3.5-5.1) mEq/L Chloride 104 (98-107) mEq/L Carbon Dioxide 22.6 (21-32) mEq/L Anion Gap 14.6 (5-15) MEQ/L BUN 14 (9-20) mg/dL Creatinine 0.64 (0.55-1.30) mg/dl Estimated GFR > 60 ML/MIN Glucose 301 H (70-110) MG/DL Calcium 7.1 L (8.5-10.1) mg/dL Magnesium 1.7 L (1.8-2.4) mg/dL Serum Total Protein 5.4 L (6.4-8.2) gm/dL Albumin 1.6 L (3.4-5.0) g/dL Radiology Exams: Radiology Procedures Category Date Time Status ABDOMEN 2 VIEW Routine Exams 06/16/16 06:00 Completed Assessment/Plan (1) Small bowel obstruction Current Visit: Yes Status: Acute Assessment & Plan: resolving, xray normal. will advance diet as tolerated, will try dulcolax suppository today Code(s): K56.69 - OTHER INTESTINAL OBSTRUCTION (2) Cholelithiases Current Visit: Yes Status: Acute (3) Warfarin-induced coagulopathy Current Visit: Yes Status: Acute Code(s): T45.511A - POISONING BY ANTICOAGULANTS, ACCIDENTAL, INIT; D68.9 - COAGULATION DEFECT, UNSPECIFIED (4) UTI (urinary tract infection) Current Visit: Yes Status: Acute Code(s): N39.0 - URINARY TRACT INFECTION, SITE NOT SPECIFIED (5) Confusion Current Visit: Yes Status: Acute Code(s): R41.0 - DISORIENTATION, UNSPECIFIED (6) Hematuria Current Visit: Yes Status: Acute Code(s): R31.9 - HEMATURIA, UNSPECIFIED (7) Atrial fibrillation Current Visit: Yes Status: Acute Code(s): I48.91 - UNSPECIFIED ATRIAL FIBRILLATION (8) Peripheral vascular disease Current Visit: Yes Status: Acute Code(s): I73.9 - PERIPHERAL VASCULAR DISEASE, UNSPECIFIED (9) Diabetes mellitus Current Visit: Yes Status: Acute Qualifiers: Diabetes mellitus type: type 2 Diabetes mellitus complication status: with circulatory complication Diabetes mellitus complication detail: with other circulatory complications Diabetes mellitus care home insulin use: with buttermaker helper use Qualified Code(s): E11.59 - Type 2 diabetes mellitus with other circulatory complications; Z79.4 - buttermaker helper (current) use of insulin Code(s): E11.9 - TYPE 2 DIABETES MELLITUS WITHOUT COMPLICATIONS (10) COPD exacerbation Current Visit: Yes Status: Acute Code(s): J44.1 - CHRONIC OBSTRUCTIVE PULMONARY DISEASE W (ACUTE) EXACERBATION
[2016-06-17] MEDS: NovoLOG Insulin SQ PRN ×3 (08:07→21:57)
[2016-06-17] MEDS: ENOXAPARIN SODIUM SQ SCH (09:45)
[2016-06-17] MEDS: NITRO-DUR 0.2 MG/HR TOP SCH (09:45)
[2016-06-17] MEDS: Pepcid 20 MG VIAL IV SCH ×2 (09:46→21:52)
[2016-06-17] MEDS: TYLENOL 325 MG PO PRN (13:45)
[2016-06-17] MEDS: INTRALIPID 20% 250 ML 250 ML, TPN Electrolytes 40 ML, Multitrace-4 Conc Vial 1 ML*** 1 ... IV SCH ×5 (14:01)
[2016-06-17] MEDS: Cardizem CD 240 MG PO SCH (21:52)
[2016-06-18] MEDS: Phenergan 25 MG INJ IV PRN (08:25)
[2016-06-18] MEDS: MORPHINE SULFATE 10 MG/ML IV PRN ×4 (08:26→21:30)
[2016-06-18] MEDS: DUONEB 0.5-3 MG/3 ml Neb IH PRN (08:28)
[2016-06-18] MEDS: NovoLOG Insulin SQ PRN ×4 (08:44→21:41)
--- NOTE | 2016-06-18 08:47 | PCM.NOTE ---
Date and Time: 06/18/16 0843 Subjective Assessment: Pt c/o 5/10 epigastric pain. Has tolerated a very small amount of Po for breakfast. no flatus. - Review of Systems Constitutional: No Fever Abdominal/Gastrointestinal: Abdominal Pain Objective Exam General Appearance: no apparent distress, other (oriented to place but not time) Neurologic Exam: alert, cooperative Skin Exam: normal color, warm, dry Eye Exam: eyes nml inspection Respiratory Exam: normal breath sounds, wheezing (exp, faint, throughout), No crackles/rales, No rhonchi Cardiovascular Exam: regular rate/rhythm, normal heart sounds, No murmur OBJECTIVE DATA Vital Signs: Vital Signs - 24 hr Temp Pulse Resp BP Pulse Ox 06/18/16 07:41 98.9 F 79 18 136/88 92 L 06/18/16 07:00 75 16 89 L 06/18/16 04:00 99.5 F 96 H 20 135/77 92 L 06/18/16 00:00 99.5 F 72 20 128/58 93 L 06/17/16 20:00 97.4 F 84 23 138/60 91 L 06/17/16 16:59 98.8 F 77 18 128/58 93 L 06/17/16 12:00 99.6 F 85 18 138/61 93 L Pain Assessment - Last Documented Pain Intensity 9 Pain Scale Used 0-10 Pain Scale Intake and Output: Intake & Output 06/15/16 06/16/16 06/17/16 06/18/16 11:59 11:59 11:59 11:59 Intake Total 2 2602 2210 3647 Output Total 400 0 Balance 2011 2602 2210 3647 Weight 7635.774 kg 77.337 kg 78.698 kg Lab Results: Accuchecks Date 06/17/16 Date 06/17/16 Date 06/17/16 Time 22:00 Time 16:30 Time 11:30 Accucheck Value: 270 Accucheck Value: 270 Accucheck Value: 251 Multi-Disciplinary Progress Notes: Multi-Disciplinary Progress Notes 06/18/16 07:45 Pharmacy Note by Hany Fraga Glucose high since TPN started. Will add 20 units of Novolin R to each bag to help with sugars. Initialized on 06/18/16 07:45 - END OF NOTE 06/17/16 09:11 Nutrition Note by Ray,Vielka F/u Note: Note regular diet con't with 50-75% po intake. TPN @ 60cc/hour started on 06/15 which provides 1638 kcals and 63 gms protein. Labs 06/17 = glu 301, Mg 1.7, alb 1.6, hgb 11.2, hct 34.4, +fluid balance 2210 mls. Weight 06/08 = 155.9# $/ = 170.14#. Feeding is appropriate. Pt with approximately 14.2# weight gain/9 days. goal #1) decrease fluid balance #2) maintain po intake >=50% #3) glu to decrease. Will monitor and f/u prn. T.CHINEDU Jay Initialized on 06/17/16 09:11 - END OF NOTE Assessment/Plan (1) Small bowel obstruction Current Visit: Yes Status: Acute Assessment & Plan: tolerating very small amounts of solid foods. per surgery thank you. Code(s): K56.69 - OTHER INTESTINAL OBSTRUCTION (2) Cholelithiases Current Visit: Yes Status: Acute Assessment & Plan: per surgery (3) Atrial fibrillation Current Visit: Yes Status: Chronic Assessment & Plan: rate controlled. Code(s): I48.91 - UNSPECIFIED ATRIAL FIBRILLATION (4) Confusion Current Visit: Yes Status: Acute Assessment & Plan: nurse thinks may be worsening. expect this to improve as she takes more po. Code(s): R41.0 - DISORIENTATION, UNSPECIFIED (5) Diabetes mellitus Current Visit: Yes Status: Acute Qualifiers: Diabetes mellitus type: type 2 Diabetes mellitus complication status: with circulatory complication Diabetes mellitus complication detail: with other circulatory complications Diabetes mellitus exterminator helper termite insulin use: with exterminator helper termite use Qualified Code(s): E11.59 - Type 2 diabetes mellitus with other circulatory complications; Z79.4 - intermediate (current) use of insulin Assessment & Plan: BS [id number], covering with ss insulin. Code(s): E11.9 - TYPE 2 DIABETES MELLITUS WITHOUT COMPLICATIONS (6) Peripheral vascular disease Current Visit: Yes Status: Chronic Code(s): I73.9 - PERIPHERAL VASCULAR DISEASE, UNSPECIFIED (7) UTI (urinary tract infection) Current Visit: Yes Status: Resolved Assessment & Plan: was treatedc x 7d with IV rocephin. Code(s): N39.0 - URINARY TRACT INFECTION, SITE NOT SPECIFIED (8) COPD exacerbation Current Visit: Yes Status: Acute Assessment & Plan: albuterol nebs prn, faint wheezing today Code(s): J44.1 - CHRONIC OBSTRUCTIVE PULMONARY DISEASE W (ACUTE) EXACERBATION
[2016-06-18] MEDS: DEXTROSE 5% -NACL 0.9% 1000 ML + KCl 20 MEQ 1,000 ML IV SCH ×2 (10:38→20:54)
[2016-06-18] MEDS: Pepcid 20 MG VIAL IV SCH (10:40)
[2016-06-18] MEDS: NITRO-DUR 0.2 MG/HR TOP SCH (10:43)
[2016-06-18] MEDS: ENOXAPARIN SODIUM SQ SCH (10:44)
[2016-06-18] MEDS ORDERED: INTRALIPID 20% 250 ML 250 ML, TPN Electrolytes 40 ML, Multitrace-4 Conc Vial 1 ML*** 1 ... IV SCH ×6 (14:00)
[2016-06-18] MEDS ORDERED: xanAX 0.25 MG PO ONE (17:15)
[2016-06-18] MEDS ORDERED: Pepcid 20 MG PO SCH (20:00)
[2016-06-18] MEDS: Cardizem CD 240 MG PO SCH (21:26)
[2016-06-18] MEDS: Ativan 2 MG/1 ML VIAL IV PRN (21:31)
[2016-06-19 05:56] LABS: Mean Cell Volume 87.4 fl (78-100); Mean Platelet Volume 9.2 fl (6-9.5); Platelet Count 232 K/mm3 (150-450); Red Blood Count 3.58 M/mm3 (4.1-5.4); Red Cell Distribution Width 15.3 % (11.5-14.0); White Blood Count 9.3 K/mm3 (4.0-10.5)
[2016-06-19 05:57] LABS: Mean Corpuscular Hemoglobin 28.4 pg (26-32)
[2016-06-19 06:13] LABS: ALBUMIN 1.4 g/dL (3.4-5.0); ALKALINE PHOSPHATASE 82 U/L (46-116); ANION GAP 11.6 MEQ/L (5-15); BILIRUBIN,TOTAL 0.2 mg/dL (0.2-1.0); BLOOD UREA NITROGEN 15 mg/dL (9-20); CHLORIDE 104 mEq/L (98-107); Carbon Dioxide 24.6 mEq/L (21-32); Glucose 220 MG/DL (70-110); MAGNESIUM 1.6 mg/dL (1.8-2.4); SGOT/AST 9 U/L (15-37); SODIUM 136 mEq/L (136-145); Total Protein 5.4 gm/dL (6.4-8.2)
[2016-06-19] MEDS: DUONEB 0.5-3 MG/3 ml Neb IH PRN ×2 (07:11→17:25)
[2016-06-19 07:19] LABS: SGPT/ALT < 6 U/L (12-78)
[2016-06-19] MEDS: NITRO-DUR 0.2 MG/HR TOP SCH (07:59)
[2016-06-19] MEDS: DURAGESIC TOP SCH (08:00)
[2016-06-19] MEDS: NovoLOG Insulin SQ PRN ×3 (08:01→21:29)
[2016-06-19] MEDS: ENOXAPARIN SODIUM SQ SCH (08:01)
--- NOTE | 2016-06-19 08:47 | PCM.NOTE ---
Date and Time: 06/19/16 0845 Subjective Assessment: patient tolerating some po, did vomit last night per patient. nausea better today, still having pain but overall doing better. Objective Exam General Appearance: no apparent distress, alert Skin Exam: normal color, warm, dry Respiratory Exam: normal breath sounds, lungs clear, No respiratory distress Cardiovascular Exam: regular rate/rhythm, normal heart sounds Gastrointestinal/Abdomen Exam: soft, normal bowel sounds, No tenderness, No mass OBJECTIVE DATA Vital Signs: Vital Signs - 24 hr Temp Pulse Resp BP Pulse Ox 06/19/16 07:41 98.5 F 89 18 160/69 93 L 06/19/16 07:13 75 18 93 L 06/19/16 04:00 98.2 F 74 20 148/67 93 L 06/19/16 00:00 98.2 F 71 14 115/59 93 L 06/18/16 21:02 78 16 93 L 06/18/16 20:00 98.9 F 77 14 168/72 92 L 06/18/16 16:00 99.0 F 73 21 166/71 92 L 06/18/16 12:00 99.3 F 78 20 156/64 95 Pain Assessment - Last Documented Pain Intensity 0 Pain Scale Used 0-10 Pain Scale Intake and Output: Intake & Output 06/16/16 06/17/16 06/18/16 06/19/16 11:59 11:59 11:59 11:59 Intake Total 2602 2210 3647 2764 Output Total 0 Balance 2602 2210 3647 2764 Weight 7635.774 kg 77.337 kg 78.698 kg 83.007 kg Lab Results: Accuchecks Date 06/19/1606/18/1606/18/16 Time 07:30 Time 16:30 Time 11:30 Accucheck Value: 220 Accucheck Value: 206 Accucheck Value: 220 Accucheck Value: 259 Lab Results-Last 24 Hours 06/19/16 06/19/16 Range/Units 05:25 05:25 WBC 9.3 (4.0-10.5) K/mm3 RBC 3.58 L (4.1-5.4) M/mm3 Hgb 10.2 L (12.0-16.0) gm/dl Hct 31.3 L (35-47) % MCV 87.4 (78-100) fl MCH 28.4 (26-32) pg MCHC 32.6 (32-36) g/dl RDW 15.3 H (11.5-14.0) % Plt Count 232 (150-450) K/mm3 MPV 9.2 (6-9.5) fl Sodium 136 (136-145) mEq/L Potassium 4.0 (3.5-5.1) mEq/L Chloride 104 (98-107) mEq/L Carbon Dioxide 24.6 (21-32) mEq/L Anion Gap 11.6 (5-15) MEQ/L BUN 15 (9-20) mg/dL Creatinine 0.66 (0.55-1.30) mg/dl Estimated GFR > 60 ML/MIN Glucose 220 H (70-110) MG/DL Calcium 7.1 L (8.5-10.1) mg/dL Magnesium 1.6 L (1.8-2.4) mg/dL Total Bilirubin 0.2 (0.2-1.0) mg/dL AST 9 L (15-37) U/L ALT < 6 L (12-78) U/L Alkaline Phosphatase 82 (46-116) U/L Serum Total Protein 5.4 L (6.4-8.2) gm/dL Albumin 1.4 L (3.4-5.0) g/dL Assessment/Plan (1) Small bowel obstruction Current Visit: Yes Status: Acute Assessment & Plan: resolving, if able to keep down po today will likely d/c TPN tomorrow. Code(s): K56.69 - OTHER INTESTINAL OBSTRUCTION (2) Cholelithiases Current Visit: Yes Status: Acute (3) Warfarin-induced coagulopathy Current Visit: Yes Status: Acute Code(s): T45.511A - POISONING BY ANTICOAGULANTS, ACCIDENTAL, INIT; D68.9 - COAGULATION DEFECT, UNSPECIFIED (4) UTI (urinary tract infection) Current Visit: Yes Status: Resolved Code(s): N39.0 - URINARY TRACT INFECTION , SITE NOT SPECIFIED (5) Confusion Current Visit: Yes Status: Acute Code(s): R41.0 - DISORIENTATION, UNSPECIFIED (6) Hematuria Current Visit: Yes Status: Acute Code(s): R31.9 - HEMATURIA, UNSPECIFIED (7) Atrial fibrillation Current Visit: Yes Status: Chronic Code(s): I48.91 - UNSPECIFIED ATRIAL FIBRILLATION (8) Peripheral vascular disease Current Visit: Yes Status: Chronic Code(s): I73.9 - PERIPHERAL VASCULAR DISEASE, UNSPECIFIED (9) Diabetes mellitus Current Visit: Yes Status: Acute Qualifiers: Diabetes mellitus type: type 2 Diabetes mellitus complication status: with circulatory complication Diabetes mellitus complication detail: with other circulatory complications Diabetes mellitus terminal supervisor insulin use: with intermediate use Qualified Code(s): E11.59 - Type 2 diabetes mellitus with other circulatory complications; Z79.4 - keno terminal operator (current) use of insulin Code(s): E11.9 - TYPE 2 DIABETES MELLITUS WITHOUT COMPLICATIONS (10) COPD exacerbation Current Visit: Yes Status: Acute Code(s): J44.1 - CHRONIC OBSTRUCTIVE PULMONARY DISEASE W (ACUTE) EXACERBATION
[2016-06-19] MEDS: MORPHINE SULFATE 10 MG/ML IV PRN (09:05)
[2016-06-19] MEDS ORDERED: TUMS EX TABLETS PO ONE (09:31)
[2016-06-19] MEDS: Tums EX 750 MG PO PRN ×2 (09:32→18:28)
[2016-06-19 10:56] LABS: INR 1.15 (0.8-3.0); PROTIME 12.8 SECONDS (9.95-12.35)
[2016-06-19] MEDS ORDERED: INTRALIPID 20% 250 ML 250 ML, TPN Electrolytes 40 ML, Multitrace-4 Conc Vial 1 ML*** 1 ... IV SCH ×7 (14:00)
[2016-06-19] MEDS: DEXTROSE 5% -NACL 0.9% 1000 ML + KCl 20 MEQ 1,000 ML IV SCH (14:19)
[2016-06-19] MEDS ORDERED: Coumadin 2 MG PO SCH (18:00)
[2016-06-19] MEDS: Cardizem CD 240 MG PO SCH (21:26)
[2016-06-20] MEDS: Tums EX 750 MG PO PRN (00:06)
[2016-06-20] MEDS: Zofran 4 MG/2 ML VIAL IV PRN (01:05)
[2016-06-20] MEDS: Phenergan 25 MG INJ IV PRN (03:02)
[2016-06-20 06:09] LABS: Mean Cell Volume 87.2 fl (78-100); Mean Corpuscular Hemoglobin 28.7 pg (26-32); Mean Platelet Volume 9.5 fl (6-9.5); Platelet Count 297 K/mm3 (150-450); Red Blood Count 3.83 M/mm3 (4.1-5.4); Red Cell Distribution Width 15.5 % (11.5-14.0); White Blood Count 11.3 K/mm3 (4.0-10.5)
[2016-06-20 06:23] LABS: ANION GAP 9.7 MEQ/L (5-15); BLOOD UREA NITROGEN 18 mg/dL (9-20); CHLORIDE 102 mEq/L (98-107); Carbon Dioxide 29.3 mEq/L (21-32); Glucose 243 MG/DL (70-110); Potassium 4.7 mEq/L (3.5-5.1); SODIUM 136 mEq/L (136-145)
[2016-06-20 06:58] LABS: ANISOCYTOSIS 1+; BAND 2 % (0.0-2.0); Eosinophil 1 % (0.00-3.0); Platelet Estimate NORMAL (NORMAL); Total Cells Counted 100; Toxic Granulation 1+
[2016-06-20 07:03] VITALS: O2SAT 92
[2016-06-20] MEDS: NovoLOG Insulin SQ PRN (07:53)
--- NOTE | 2016-06-20 08:05 | PCM.NOTE ---
Date and Time: 06/20/16 0802 Subjective Assessment: patient still c/o nausea but tolerated diet yesterday. still has some pain but currently is comfortable and has been well controlled at this time. Objective Exam General Appearance: no apparent distress, alert Respiratory Exam: normal breath sounds, lungs clear, No respiratory distress Cardiovascular Exam: regular rate/rhythm, normal heart sounds Gastrointestinal/Abdomen Exam: soft, normal bowel sounds, other (ventral hernia present, soft and reducible), No tenderness OBJECTIVE DATA Vital Signs: Vital Signs - 24 hr Temp Pulse Resp BP Pulse Ox 06/20/16 07:01 83 18 92 L 06/20/16 07:00 98.8 F 81 24 142/102 92 L 06/20/16 03:00 98.2 F 89 17 148/65 94 L 06/19/16 23:00 97.9 F 80 15 176/71 92 L 06/19/16 19:08 82 18 91 L 06/19/16 19:00 98.9 F 82 19 134/63 94 L 06/19/16 17:57 77 18 95 06/19/16 15:00 99.3 F 60 18 151/67 91 L 06/19/16 11:00 98.5 F 79 18 147/65 94 L Pain Assessment - Last Documented Pain Intensity 3 Pain Scale Used 0-10 Pain Scale Intake and Output: Intake & Output 06/17/16 06/18/16 06/19/16 06/20/16 11:59 11:59 11:59 11:59 Intake Total 2210 3647 2764 1406 Balance 2210 3647 2764 1406 Weight 77.337 kg 78.698 kg 83.007 kg Lab Results: Accuchecks Date 06/19/16 Date 06/19/16 Time 16:48 Time 11:26 Accucheck Value: 231 Accucheck Value: 173 Accucheck Value: 237 Lab Results-Last 24 Hours 06/19/16 06/20/16 06/20/16 Range/Units 09:45 05:55 05:55 WBC 11.3 H (4.0-10.5) K/mm3 RBC 3.83 L (4.1-5.4) M/mm3 Hgb 11.0 L (12.0-16.0) gm/dl Hct 33.4 L (35-47) % MCV 87.2 (78-100) fl MCH 28.7 (26-32) pg MCHC 32.9 (32-36) g/dl RDW 15.5 H (11.5-14.0) % Plt Count 297 (150-450) K/mm3 MPV 9.5 (6-9.5) fl Segmented Neutrophils 75 H (36.0-66.0) % Band Neutrophils 2 (0.0-2.0) % Lymphocytes (Manual) 15 L (24-44) % Monocytes (Manual) 7 (0.0-12.0) % Eosinophils (Manual) 1 (0.00-3.0) % Differential Comment ABNORMAL Toxic Granulation 1+ Platelet Estimate NORMAL (NORMAL) Anisocytosis 1+ INR 1.15 (0.8-3.0) Sodium 136 (136-145) mEq/L Potassium 4.7 (3.5-5.1) mEq/L Chloride 102 (98-107) mEq/L Carbon Dioxide 29.3 (21-32) mEq/L Anion Gap 9.7 (5-15) MEQ/L BUN 18 (9-20) mg/dL Creatinine 0.70 (0.55-1.30) mg/dl Estimated GFR > 60 ML/MIN Glucose 243 H (70-110) MG/DL Calcium 7.7 L (8.5-10.1) mg/dL Multi-Disciplinary Progress Notes: Multi-Disciplinary Progress Notes 06/19/16 09:46 Pharmacy Note by Hany Fraga Glucose better but still high. Will increase Novolin R to 30 units in TPN. Mag low at 1.6, will add extra Mag 1gm to each bag. Initialized on 06/19/16 09:46 - END OF NOTE Assessment/Plan (1) Small bowel obstruction Current Visit: Yes Status: Acute Assessment & Plan: improving, tolerating po, if tolerates diet again today will d/c TPN tomorrow ( pt states she did not eat dinner last pm) Code(s): K56.69 - OTHER INTESTINAL OBSTRUCTION (2) Cholelithiases Current Visit: Yes Status: Acute (3) Warfarin-induced coagulopathy Current Visit: Yes Status: Acute Code(s): T45.511A - POISONING BY ANTICOAGULANTS, ACCIDENTAL, INIT; D68.9 - COAGULATION DEFECT, UNSPECIFIED (4) UTI (urinary tract infection) Current Visit: Yes Status: Resolved Code(s): N39.0 - URINARY TRACT INFECTION , SITE NOT SPECIFIED (5) Confusion Current Visit: Yes Status: Acute Code(s): R41.0 - DISORIENTATION, UNSPECIFIED (6) Hematuria Current Visit: Yes Status: Acute Code(s): R31.9 - HEMATURIA, UNSPECIFIED (7) Atrial fibrillation Current Visit: Yes Status: Chronic Code(s): I48.91 - UNSPECIFIED ATRIAL FIBRILLATION (8) Peripheral vascular disease Current Visit: Yes Status: Chronic Code(s): I73.9 - PERIPHERAL VASCULAR DISEASE, UNSPECIFIED (9) Diabetes mellitus Current Visit: Yes Status: Acute Qualifiers: Diabetes mellitus type: type 2 Diabetes mellitus complication status: with circulatory complication Diabetes mellitus complication detail: with other circulatory complications Diabetes mellitus care home insulin use: with continuous churn buttermaker use Qualified Code(s): E11.59 - Type 2 diabetes mellitus with other circulatory complications; Z79.4 - termite control service representative (current) use of insulin Code(s): E11.9 - TYPE 2 DIABETES MELLITUS WITHOUT COMPLICATIONS (10) COPD exacerbation Current Visit: Yes Status: Acute Code(s): J44.1 - CHRONIC OBSTRUCTIVE PULMONARY DISEASE W (ACUTE) EXACERBATION
[2016-06-20] MEDS: ENOXAPARIN SODIUM SQ SCH (09:00)
[2016-06-20] MEDS: NITRO-DUR 0.2 MG/HR TOP SCH (09:00)
[2016-06-20] MEDS: MORPHINE SULFATE 10 MG/ML IV PRN ×2 (09:05→14:24)
--- NOTE | 2016-06-20 09:16 | PCM.DS ---
Discharge Summary Date of Admission: 06/08/16 16:10 Admitting Physician: EDEL FOSTER Consults: Consults on Case 06/10/16 20:00 Consult Surgery ROUTINE 06/15/16 12:00 Nutritional Consult ROUTINE Primary Care Provider: EDEL FOSTER Allergies Allergies metoprolol Allergy (Severe, Verified 06/08/16 14:33) Hives pantoprazole [From Protonix] Allergy (Verified 06/08/16 15:38) PCN Allergy (Severe, Uncoded 12/23/14 12:22) Hives REDNESS. sulfa Allergy (Severe, Uncoded 12/23/14 12:22) Hives iodine Allergy (Intermediate, Uncoded 12/23/14 12:22) Skin Irritation Hospital Summary - Hospital Course Hospital Course: patient was admitted with sbo, has improved with conservative treatment. she is tolerating some po intake but still feels poorly. going to swing bed status for therapy due to weakness, deconditioning and to work on improving po intake. - Vitals & Intake/Output Vital Signs: Vital Signs Temperature 98.8 F 06/20/16 07:00 Pulse Rate 83 06/20/16 07:01 Respiratory Rate 18 06/20/16 07:01 Blood Pressure 142/102 06/20/16 07:00 O2 Sat by Pulse Oximetry 92 L 06/20/16 07:01 Oxygen-Last Documented O2 Percentage 2 Liters = 28% Intake & Output: Intake & Output 06/17/16 06/18/16 06/19/16 06/20/16 11:59 11:59 11:59 11:59 Intake Total 2210 3647 2764 1406 Balance 2210 3647 2764 1406 Weight 77.337 kg 78.698 kg 83.007 kg - Lab Result Diagrams: 06/20/16 05:55 06/20/16 05:55 Lab Results-Last 24 Hrs: Accuchecks Date 06/19/16 Date 06/19/16 Time 16:48 Time 11:26 Accucheck Value: 231 Accucheck Value: 173 Accucheck Value: 237 Lab Results-Last 24 Hours 06/19/16 06/20/16 06/20/16 Range/Units 09:45 05:55 05:55 WBC 11.3 H (4.0-10.5) K/mm3 RBC 3.83 L (4.1-5.4) M/mm3 Hgb 11.0 L (12.0-16.0) gm/dl Hct 33.4 L (35-47) % MCV 87.2 (78-100) fl MCH 28.7 (26-32) pg MCHC 32.9 (32-36) g/dl RDW 15.5 H (11.5-14.0) % Plt Count 297 (150-450) K/mm3 MPV 9.5 (6-9.5) fl Segmented Neutrophils 75 H (36.0-66.0) % Band Neutrophils 2 (0.0-2.0) % Lymphocytes (Manual) 15 L (24-44) % Monocytes (Manual) 7 (0.0-12.0) % Eosinophils (Manual) 1 (0.00-3.0) % Differential Comment ABNORMAL Toxic Granulation 1+ Platelet Estimate NORMAL (NORMAL) Anisocytosis 1+ INR 1.15 (0.8-3.0) Sodium 136 (136-145) mEq/L Potassium 4.7 (3.5-5.1) mEq/L Chloride 102 (98-107) mEq/L Carbon Dioxide 29.3 (21-32) mEq/L Anion Gap 9.7 (5-15) MEQ/L BUN 18 (9-20) mg/dL Creatinine 0.70 (0.55-1.30) mg/dl Estimated GFR > 60 ML/MIN Glucose 243 H (70-110) MG/DL Calcium 7.7 L (8.5-10.1) mg/dL Micro Results-Entire Visit: Accuchecks Date 06/19/16 Date 06/19/16 Time 16:48 Time 11:26 Accucheck Value: 231 Accucheck Value: 173 Accucheck Value: 237 - Procedures and Test Procedures and Tests throughout Hospitalization: Therapy Orders & Screens 06/08/16 19:04 neb [Respiratory Nebulizer] PRN Comment: Q4PRN Diagnosis: UTI, HEMATURIA 06/08/16 19:10 Oxygen NASAL CANNULA 6 lpm Comment: TITRATE TO MAINTAIN SATS Diagnosis: UTI, HEMATURIA 06/09/16 07:00 Respiratory Nebulizer Q6H Comment: DUONEB Q6 Diagnosis: UTI, HEMATURIA 06/14/16 15:16 EKG ROUTINE Comment: Diagnosis: UTI, HEMATURIA 06/16/16 13:18 EKG ROUTINE Comment: Diagnosis: UTI, HEMATURIA Discharge Exam General Appearance: no apparent distress, alert Respiratory Exam: normal breath sounds, lungs clear, No respiratory distress Cardiovascular Exam: regular rate/rhythm, normal heart sounds Gastrointestinal/Abdomen Exam: soft, normal bowel sounds, No tenderness, No distention Final Diagnosis/Problem List - Final Discharge Diagnosis/Problem (1) Small bowel obstruction Current Visit: Yes Status: Acute (2) Cholelithiases Current Visit: Yes Status: Acute (3) Warfarin-induced coagulopathy Current Visit: Yes Status: Acute (4) UTI (urinary tract infection) Current Visit: Yes Status: Resolved (5) Confusion Current Visit: Yes Status: Acute (6) Hematuria Current Visit: Yes Status: Acute (7) Atrial fibrillation Current Visit: Yes Status: Chronic (8) Peripheral vascular disease Current Visit: Yes Status: Chronic (9) Diabetes mellitus Current Visit: Yes Status: Acute (10) COPD exacerbation Current Visit: Yes Status: Acute - Discharge Disposition: Swing Bed @ [facility] Condition: Fair Prescriptions: No Action Nitroglycerin 0.2 mg/Hr [Nitro-Dur 0.2 mg/Hr] 0.2 mg TOP DAILY Insulin Glargine [Lantus Insulin] 50 unit SQ HS Fentanyl 100 Mcg Patch [Duragesic 100 MCG Patch] 100 mcg TOP UD Insulin Aspart [Novolog] 1 unit SQ UD Clopidogrel Bisulfate 75 mg [PLAVIX 75 MG Tablet] 75 mg PO DAILY Morphine Sulfate [Morphine Sulfate ER] 60 mg PO TID Diltiazem HCl [Cardizem Cd] 180 mg PO HS Diclofenac Sodium Gel [Voltaren GEL] 2 gm TOP QID PRN PRN PRN Reason: Pain Non-Formulary Drug [Non-Formulary Item] 1 mg PO TID Calcium Carb/Magnesium Hydrox [Rolaids Chewable Tablet] 1 each PO UD PRN PRN Reason: Indigestion Lutein [Natural Lutein] 20 mg PO DAILY Fluconazole 100 mg [Diflucan 100 MG] 100 mg PO DAILY PRN PRN PRN Reason: Fever Warfarin Sodium 2 mg [Coumadin 2 MG] 2 mg PO HS Cranberry 500 mg PO DAILY Follow up with: EDEL FOSTER MD [Primary Care Provider] -
[2016-06-20 13:20] VITALS: BP 96/55; PULSE 136
== END 2016-06-20 14:30 | disposition swing bed (61) | DRG 389 ==
LOC: ED 13:12 → MED SURG 16:10
PROVIDERS: ADMIT Family Medicine; ATTEND Family Medicine
DX: K56.69 Other intestinal obstruction (principal); D68.9 Coagulation defect, unspecified; N39.0 Urinary tract infection, site not specified; J44.1 Chronic obstructive pulmonary disease with (acute) exacerbation; K80.20 Calculus of gallbladder without cholecystitis without obstruction; T45.515A Adverse effect of anticoagulants, initial encounter; R41.0 Disorientation, unspecified; R31.9 Hematuria, unspecified; I48.91 Unspecified atrial fibrillation; I73.9 Peripheral vascular disease, unspecified; E11.9 Type 2 diabetes mellitus without complications; Z79.4 Long term (current) use of insulin; Z79.899 Other long term (current) drug therapy; G62.9 Polyneuropathy, unspecified; Z86.718 Personal history of other venous thrombosis and embolism; I10 Essential (primary) hypertension; F41.9 Anxiety disorder, unspecified; Z85.42 Personal history of malignant neoplasm of other parts of uterus; Z89.612 Acquired absence of left leg above knee
CPT/HCPCS: 36000; 36415; 43752; 70450; 71010; 74000; 74020; 74176; 76000; 76705; 80048; 80053; 81000; 82040; 82150; 82962; 83036; 83605; 83690; 83735; 84132; 84155; 85025; 85027; 85610; 87040; 87077; 87086; 87186; 93005; 93041; 94640; 94760; 94762; 96360; 96361; 96365; 96374; 96376; 99285; J0696; J1650; J1815; J2060; J2270; J2405; J2550; J3010; J3430; J3475; J3480; P9612; A9270-GY

== ENCOUNTER 2016-06-20 13:50 | Inpatient (IN) | payer MEDICARE, OTHER ==
[2016-06-20] MEDS ORDERED: Tums EX 750 MG PO PRN (14:43)
[2016-06-20] MEDS ORDERED: INTRALIPID 20% 250 ML 250 ML, TPN Electrolytes 40 ML, Multitrace-4 Conc Vial 1 ML*** 1 ... IV SCH ×7 (14:43)
[2016-06-20] MEDS ORDERED: DEXTROSE 5% -NACL 0.9% 1000 ML + KCl 20 MEQ 1,000 ML IV SCH (14:43)
[2016-06-20] MEDS ORDERED: CHLORASEPTIC SPRAY 180 ML PO PRN (14:43)
[2016-06-20] MEDS ORDERED: Glutose 15 GM ORAL GEL PO PRN (14:43)
[2016-06-20] MEDS ORDERED: Pepcid 20 MG PO SCH (14:43)
[2016-06-20] MEDS ORDERED: D50W 50 ml Abboject IV PRN (14:43)
[2016-06-20] MEDS ORDERED: DUONEB 0.5-3 MG/3 ml Neb IH PRN (14:43)
[2016-06-20] MEDS ORDERED: DURAGESIC TOP SCH (14:43)
[2016-06-20] MEDS ORDERED: GlucaGen 1 MG IM PRN (14:43)
[2016-06-20] MEDS: NovoLOG Insulin SQ PRN (16:46)
[2016-06-20] MEDS: Coumadin 2 MG PO SCH (17:14)
[2016-06-20] MEDS: Cardizem CD 240 MG PO SCH (17:43)
[2016-06-20] MEDS: Ativan 2 MG/1 ML VIAL IV PRN (22:21)
[2016-06-20] MEDS: Zofran 4 MG/2 ML VIAL IV PRN (22:21)
[2016-06-20] MEDS: MORPHINE SULFATE 10 MG/ML IV PRN (22:21)
[2016-06-21 05:51] LABS: Mean Corpuscular Hemoglobin 28.8 pg (26-32); Mean Platelet Volume 9.9 fl (6-9.5); Platelet Count 294 K/mm3 (150-450); Red Blood Count 3.33 M/mm3 (4.1-5.4); Red Cell Distribution Width 15.7 % (11.5-14.0); White Blood Count 9.4 K/mm3 (4.0-10.5)
[2016-06-21 06:04] LABS: ALBUMIN 1.3 g/dL (3.4-5.0); ALKALINE PHOSPHATASE 81 U/L (46-116); ANION GAP 11.2 MEQ/L (5-15); BILIRUBIN,TOTAL 0.2 mg/dL (0.2-1.0); BLOOD UREA NITROGEN 19 mg/dL (9-20); CHLORIDE 105 mEq/L (98-107); Carbon Dioxide 25.1 mEq/L (21-32); Glucose 214 MG/DL (70-110); Potassium 4.2 mEq/L (3.5-5.1); SGOT/AST 9 U/L (15-37); SODIUM 137 mEq/L (136-145); Total Protein 5.3 gm/dL (6.4-8.2)
[2016-06-21 06:23] LABS: INR 1.28 (0.8-3.0); PROTIME 14.2 SECONDS (9.95-12.35)
[2016-06-21 06:24] LABS: SGPT/ALT < 6 U/L (12-78)
[2016-06-21 07:19] LABS: ATYPICAL LYMPHS 2 %; BAND 9 % (0.0-2.0); Eosinophil 1 % (0.00-3.0); Myelocyte 1 %; Total Cells Counted 100
[2016-06-21 07:21] LABS: ANISOCYTOSIS 1+; Hypochromia 1+; Platelet Estimate NORMAL (NORMAL); Poikilocytosis 1+
[2016-06-21] MEDS: NovoLOG Insulin SQ PRN (08:08)
--- NOTE | 2016-06-21 08:13 | PCM.NOTE ---
Date and Time: 06/21/16 08 Subjective Assessment: patient doing better today, tolerating po better. no nausea or vomiting today. feels congested and has some cough in her chest Objective Exam General Appearance: no apparent distress, alert Respiratory Exam: wheezing, No respiratory distress Cardiovascular Exam: regular rate/rhythm, normal heart sounds Gastrointestinal/Abdomen Exam: soft, normal bowel sounds, No tenderness, No distention, No mass, No guarding OBJECTIVE DATA Vital Signs: Vital Signs - 24 hr Temp Pulse Resp BP Pulse Ox 06/21/16 07:25 99.2 F 82 20 175/72 94 L 06/21/16 07:10 80 18 95 06/20/16 21:17 98.2 F 105 H 20 125/78 89 L 06/20/16 20:32 105 H 20 89 L 06/20/16 19:46 98.2 F 148 H 20 125/78 92 L 06/20/16 15:54 98.8 F 88 25 H 96/55 92 L 06/20/16 15:40 86 18 93 L Oxygen-Last 24 hours O2 Percentage 2 Liters = 28% Pain Assessment - Last Documented Pain Intensity 5 Pain Scale Used 0-10 Pain Scale Intake and Output: Intake & Output 06/18/16 06/19/16 06/20/16 06/21/16 11:59 11:59 11:59 11:59 Intake Total 2543 Balance 2543 Weight 81.737 kg Lab Results: Accuchecks Accucheck Value: 196 Accucheck Value: 196 Lab Results-Last 24 Hours 06/21/16 06/21/16 06/21/16 Range/Units 05:05 05:05 05:05 WBC 9.4 (4.0-10.5) K/mm3 RBC 3.33 L (4.1-5.4) M/mm3 Hgb 9.6 L (12.0-16.0) gm/dl Hct 29.3 L (35-47) % MCV 88.0 (78-100) fl MCH 28.8 (26-32) pg MCHC 32.8 (32-36) g/dl RDW 15.7 H (11.5-14.0) % Plt Count 294 (150-450) K/mm3 MPV 9.9 H (6-9.5) fl Segmented Neutrophils 59 (36.0-66.0) % Band Neutrophils 9 H (0.0-2.0) % Lymphocytes (Manual) 16 L (24-44) % Monocytes (Manual) 12 (0.0-12.0) % Eosinophils (Manual) 1 (0.00-3.0) % Myelocytes 1 % Differential Comment ABNORMAL Atypical Lymphocytes 2 % Platelet Estimate NORMAL (NORMAL) Hypochromasia 1+ Poikilocytosis 1+ Anisocytosis 1+ INR 1.28 (0.8-3.0) Sodium 137 (136-145) mEq/L Potassium 4.2 (3.5-5.1) mEq/L Chloride 105 (98-107) mEq/L Carbon Dioxide 25.1 (21-32) mEq/L Anion Gap 11.2 (5-15) MEQ/L BUN 19 (9-20) mg/dL Creatinine 0.54 L (0.55-1.30) mg/dl Estimated GFR > 60 ML/MIN Glucose 214 H (70-110) MG/DL Calcium 7.6 L (8.5-10.1) mg/dL Total Bilirubin 0.2 (0.2-1.0) mg/dL AST 9 L (15-37) U/L ALT < 6 L (12-78) U/L Alkaline Phosphatase 81 (46-116) U/L Serum Total Protein 5.3 L (6.4-8.2) gm/dL Albumin 1.3 L (3.4-5.0) g/dL Multi-Disciplinary Progress Notes: Multi-Disciplinary Progress Notes 06/20/16 20:46 Respiratory Note by Nishant Loo UPON O2 CHECK I NOTICED THAT PT SATS WERE BOUNCING BETWEEN 89-93% ON RA. PT STATED SHE WAS NOT SOB BUT WAS IN PAIN AND SHE HAD BEEN VOMITING. I PLACED PT ON 2LPM O2 W/ HUMIDITY TO MAINTAIN SATS OF 92% OR ABOVE. Initialized on 06/20/16 20:46 - END OF NOTE Assessment/Plan (1) Small bowel obstruction Current Visit: No Status: Acute Assessment & Plan: will stop TPN, patient tolerating po better. remove dextrose from IV fluids as no longer having hypoglycemic episodes. Code(s): K56.69 - OTHER INTESTINAL OBSTRUCTION (2) COPD exacerbation Current Visit: No Status: Acute Assessment & Plan: add nebs Code(s): J44.1 - CHRONIC OBSTRUCTIVE PULMONARY DISEASE W (ACUTE) EXACERBATION (3) Diabetes mellitus Current Visit: No Status: Acute Qualifiers: Code(s): E11.9 - TYPE 2 DIABETES MELLITUS WITHOUT COMPLICATIONS (4) Atrial fibrillation Current Visit: No Status: Chronic Code(s): I48.91 - UNSPECIFIED ATRIAL FIBRILLATION (5) Peripheral vascular disease Current Visit: No Status: Chronic Code(s): I73.9 - PERIPHERAL VASCULAR DISEASE, UNSPECIFIED
[2016-06-21] MEDS: SODIUM CHLORIDE 0.45% W/ 20 mEq KCL 1,000 ML IV SCH (08:18)
[2016-06-21] MEDS: DUONEB 0.5-3 MG/3 ml Neb IH SCH ×3 (09:28→19:27)
[2016-06-21] MEDS: NITRO-DUR 0.2 MG/HR TOP SCH (09:51)
[2016-06-21] MEDS: ENOXAPARIN SODIUM SQ SCH (09:51)
[2016-06-21] MEDS: Pepcid 20 MG PO SCH ×2 (09:51→22:51)
[2016-06-21] MEDS ORDERED: Aplisol ID SCH (10:00)
[2016-06-21] MEDS: MORPHINE SULFATE 10 MG/ML IV PRN ×2 (17:01→21:48)
[2016-06-21] MEDS: Coumadin 2 MG PO SCH (17:33)
[2016-06-21] MEDS: Zofran 4 MG/2 ML VIAL IV PRN (18:56)
[2016-06-21] MEDS: Phenergan 25 MG INJ IV PRN (20:23)
[2016-06-21] MEDS: Cardizem CD 240 MG PO SCH (22:51)
[2016-06-21] MEDS: Ativan 2 MG/1 ML VIAL IV PRN (23:20)
[2016-06-22] MEDS: MORPHINE SULFATE 10 MG/ML IV PRN ×4 (01:54→21:42)
[2016-06-22] MEDS: Phenergan 25 MG INJ IV PRN (02:32)
[2016-06-22 05:49] LABS: INR 1.43 (0.8-3.0); PROTIME 15.9 SECONDS (9.95-12.35)
[2016-06-22] MEDS: DUONEB 0.5-3 MG/3 ml Neb IH SCH ×4 (07:22→18:51)
[2016-06-22] MEDS: DURAGESIC TOP SCH (08:21)
[2016-06-22] MEDS: Zofran 4 MG/2 ML VIAL IV PRN ×2 (10:02→17:40)
[2016-06-22] MEDS: ENOXAPARIN SODIUM SQ SCH (10:29)
[2016-06-22] MEDS: NITRO-DUR 0.2 MG/HR TOP SCH (10:30)
[2016-06-22] MEDS: Pepcid 20 MG PO SCH ×2 (10:30→22:50)
[2016-06-22] MEDS ORDERED: DIFLUCAN PO ONE (12:00)
[2016-06-22] MEDS: SODIUM CHLORIDE 0.45% W/ 20 mEq KCL 1,000 ML IV SCH (12:11)
[2016-06-22] MEDS: Coumadin 2 MG PO SCH (17:25)
[2016-06-22] MEDS: Cardizem CD 240 MG PO SCH (22:49)
[2016-06-23] MEDS: MORPHINE SULFATE 10 MG/ML IV PRN ×4 (04:40→21:26)
[2016-06-23] MEDS: TYLENOL 325 MG PO PRN (06:57)
[2016-06-23] MEDS: DUONEB 0.5-3 MG/3 ml Neb IH SCH ×4 (07:00→18:45)
[2016-06-23] MEDS: Phenergan 25 MG INJ IV PRN (08:10)
[2016-06-23] MEDS: Pepcid 20 MG PO SCH ×2 (08:10→22:14)
[2016-06-23] MEDS: ENOXAPARIN SODIUM SQ SCH (08:16)
[2016-06-23] MEDS: NITRO-DUR 0.2 MG/HR TOP SCH (08:16)
[2016-06-23 08:26] LABS: INR 1.81 (0.8-3.0); PROTIME 19.9 SECONDS (9.95-12.35)
[2016-06-23] MEDS: SODIUM CHLORIDE 0.45% W/ 20 mEq KCL 1,000 ML IV SCH (08:51)
[2016-06-23 15:16] LABS: Collection Type CATH
[2016-06-23 15:18] LABS: COMPLETE URINE MICROSCOPIC? YES
[2016-06-23 15:39] LABS: Epithelial Cells FEW /HPF (FEW)
[2016-06-23 15:40] LABS: Bacteria PACKED /HPF (NEGATIVE)
[2016-06-23] MEDS: Levaquin 250MG/50ML D5W 50 ML IV SCH (17:21)
[2016-06-23] MEDS ORDERED: Coumadin 3 MG PO SCH (18:00)
[2016-06-23] MEDS: Cardizem CD 240 MG PO SCH (22:13)
[2016-06-23] MEDS: TORAdol 30 mg Injection IV PRN (22:47)
[2016-06-24 06:05] LABS: INR 3.39 (0.8-3.0); PROTIME 36.6 SECONDS (9.95-12.35)
[2016-06-24] MEDS: MORPHINE SULFATE 10 MG/ML IV PRN (06:42)
[2016-06-24] MEDS: DUONEB 0.5-3 MG/3 ml Neb IH SCH ×5 (07:08→19:48)
[2016-06-24] MEDS: Zofran 4 MG/2 ML VIAL IV PRN (08:28)
--- NOTE | 2016-06-24 08:32 | PCM.NOTE ---
Date and Time: 06/24/16 08 Subjective Assessment: doing much better at this time, tolerating po intake. pain control has not been good on duragesic patch and IV morphine prn. Objective Exam General Appearance: no apparent distress Respiratory Exam: normal breath sounds, wheezing, No respiratory distress Cardiovascular Exam: regular rate/rhythm, normal heart sounds Gastrointestinal/Abdomen Exam: soft, No tenderness, No mass OBJECTIVE DATA Vital Signs: Vital Signs - 24 hr Temp Pulse Resp BP Pulse Ox 06/24/16 07:22 98.7 F 74 18 150/65 91 L 06/24/16 07:12 73 16 92 L 06/23/16 20:00 98.6 F 81 22 114/53 89 L 06/23/16 18:47 75 20 91 L 06/23/16 14:28 88 18 92 L 06/23/16 11:00 96 H 18 90 L Pain Assessment - Last Documented Pain Intensity 8 Pain Scale Used 0-10 Pain Scale Intake and Output: Intake & Output 06/21/16 06/22/16 06/23/16 06/24/16 11:59 11:59 11:59 11:59 Intake Total 2793 1769 1313 1166 Output Total 500 Balance 2793 1769 1313 666 Weight 81.737 kg 81.601 kg 83.461 kg 85.729 kg Lab Results: Accuchecks Date 06/23/16 Date 06/23/16 Date 06/23/16 Time 22:00 Time 16:30 Time 11:30 Accucheck Value: 134 Accucheck Value: 123 Accucheck Value: 135 Lab Results-Last 24 Hours 06/23/16 06/24/16 Range/Units 13:33 05:33 INR 3.39 H (0.8-3.0) Ur Collection Type CATH Urine Color YELLOW (YELLOW) Urine Appearance SLIGHTLY CLOUDY (CLEAR) Urine pH 5.0 (5-6) Ur Specific [place] 1.020 (1.005-1.025) Urine Protein 30 (Negative) Urine Glucose (UA) NEGATIVE (NEGATIVE) mg/dL Urine Ketones MODERATE-40 (NEGATIVE) Urine Nitrite POSITIVE (NEGATIVE) Urine Bilirubin SMALL (NEGATIVE) Urine Urobilinogen 1 (0-1) mg/dL Urine WBC (Auto) NEGATIVE (NEGATIVE) Urine RBC (Auto) TRACE-INTACT (0-5) [place]/ul Urine Microscopic RBC 0-2 (0-2) /HPF Urine Microscopic WBC 2-5 (0-5) /HPF Ur Epithelial Cells FEW (FEW) /HPF Urine Bacteria PACKED (NEGATIVE) /HPF Specimen Received 06/23 1500 Assessment/Plan (1) Small bowel obstruction Current Visit: No Status: Acute Assessment & Plan: resolved, tolerating po intake. will need to focus on strengthening and ability to transfer to return to home Code(s): K56.69 - OTHER INTESTINAL OBSTRUCTION (2) COPD exacerbation Current Visit: No Status: Acute Assessment & Plan: on levaquin and nebs, continue Code(s): J44.1 - CHRONIC OBSTRUCTIVE PULMONARY DISEASE W (ACUTE) EXACERBATION (3) Diabetes mellitus Current Visit: No Status: Acute Qualifiers: Code(s): E11.9 - TYPE 2 DIABETES MELLITUS WITHOUT COMPLICATIONS (4) Atrial fibrillation Current Visit: No Status: Chronic Code(s): I48.91 - UNSPECIFIED ATRIAL FIBRILLATION (5) Peripheral vascular disease Current Visit: No Status: Chronic Code(s): I73.9 - PERIPHERAL VASCULAR DISEASE, UNSPECIFIED
[2016-06-24] MEDS: NITRO-DUR 0.2 MG/HR TOP SCH (09:04)
[2016-06-24] MEDS: Pepcid 20 MG PO SCH ×2 (09:04→21:16)
[2016-06-24] MEDS: MS CONTIN 30 MG PO SCH ×3 (09:30→21:16)
[2016-06-24] MEDS: Levaquin 250MG/50ML D5W 50 ML IV SCH (09:31)
[2016-06-24] MEDS: SODIUM CHLORIDE 0.45% W/ 20 mEq KCL 1,000 ML IV SCH (09:35)
[2016-06-24] MEDS: Phenergan 25 MG INJ IV PRN (10:34)
[2016-06-24] MEDS: TORAdol 30 mg Injection IV PRN ×2 (10:34→18:42)
[2016-06-24] MEDS: NovoLOG Insulin SQ PRN (11:33)
[2016-06-24] MEDS ORDERED: TRANDATE 20 MG/5 ML SYRINGE IV ONE (15:54)
[2016-06-24] MEDS: Coumadin 2 MG PO SCH (18:42)
[2016-06-24] MEDS: Cardizem CD 240 MG PO SCH (21:15)
[2016-06-24] MEDS: Ativan 2 MG/1 ML VIAL IV PRN (23:05)
[2016-06-25] MEDS: TORAdol 30 mg Injection IV PRN ×3 (05:01→18:38)
[2016-06-25 05:44] LABS: ANION GAP 15.2 MEQ/L (5-15); BLOOD UREA NITROGEN 18 mg/dL (9-20); CHLORIDE 101 mEq/L (98-107); Carbon Dioxide 20.9 mEq/L (21-32); Glucose 109 MG/DL (70-110); Potassium 4.3 mEq/L (3.5-5.1); SODIUM 133 mEq/L (136-145)
[2016-06-25 05:57] LABS: Mean Cell Volume 86.2 fl (78-100); Mean Corpuscular Hemoglobin 28.6 pg (26-32); Mean Platelet Volume 9.2 fl (6-9.5); Platelet Count 549 K/mm3 (150-450); Red Cell Distribution Width 16.6 % (11.5-14.0); White Blood Count 14.4 K/mm3 (4.0-10.5)
[2016-06-25 06:01] LABS: INR 4.87 (0.8-3.0); PROTIME 52.1 SECONDS (9.95-12.35)
[2016-06-25 07:12] LABS: BAND 4 % (0.0-2.0); Total Cells Counted 100
[2016-06-25 07:13] LABS: ANISOCYTOSIS 1+; Platelet Estimate INCREASED (NORMAL); Toxic Granulation 1+
[2016-06-25] MEDS: DUONEB 0.5-3 MG/3 ml Neb IH SCH ×4 (07:40→20:24)
[2016-06-25] MEDS: Pepcid 20 MG PO SCH ×2 (07:56→22:33)
[2016-06-25] MEDS: DURAGESIC TOP SCH (07:56)
[2016-06-25] MEDS: NITRO-DUR 0.2 MG/HR TOP SCH (07:56)
[2016-06-25] MEDS: MS CONTIN 30 MG PO SCH ×3 (07:57→22:33)
[2016-06-25] MEDS: SODIUM CHLORIDE 0.45% W/ 20 mEq KCL 1,000 ML IV SCH (08:01)
[2016-06-25] MEDS: Levaquin 250MG/50ML D5W 50 ML IV SCH (08:06)
[2016-06-25] MEDS: TYLENOL 325 MG PO PRN (16:56)
[2016-06-25] MEDS: Coumadin 2 MG PO SCH (17:52)
[2016-06-25] MEDS: Cardizem CD 240 MG PO SCH (22:33)
[2016-06-26] MEDS: TORAdol 30 mg Injection IV PRN ×3 (01:07→20:40)
[2016-06-26] MEDS: TYLENOL 325 MG PO PRN (01:43)
[2016-06-26] MEDS: Ativan 2 MG/1 ML VIAL IV PRN (01:43)
[2016-06-26] MEDS ORDERED: MORPHINE SULFATE 4 MG INJ IV ONE (03:08)
[2016-06-26] MEDS: SODIUM CHLORIDE 0.45% W/ 20 mEq KCL 1,000 ML IV SCH (04:01)
[2016-06-26 06:27] LABS: PROTIME 74.2 SECONDS (9.95-12.35)
[2016-06-26 06:58] LABS: INR 6.54 (0.8-3.0)
[2016-06-26] MEDS: DUONEB 0.5-3 MG/3 ml Neb IH SCH ×4 (06:59→17:34)
[2016-06-26] MEDS: Levaquin 250MG/50ML D5W 50 ML IV SCH (08:04)
[2016-06-26] MEDS: NITRO-DUR 0.2 MG/HR TOP SCH (08:05)
[2016-06-26] MEDS: MS CONTIN 30 MG PO SCH ×3 (08:05→20:48)
[2016-06-26] MEDS: Pepcid 20 MG PO SCH ×2 (08:05→20:48)
--- NOTE | 2016-06-26 09:12 | PCM.NOTE ---
Date and Time: 06/26/16 0911 Subjective Assessment: patient tolerating po, participating in therapy. reports she is feeling better each day. Objective Exam General Appearance: no apparent distress Neurologic Exam: alert Skin Exam: normal color, warm, dry Respiratory Exam: crackles/rales, wheezing Cardiovascular Exam: regular rate/rhythm, normal heart sounds Gastrointestinal/Abdomen Exam: soft, No tenderness, No mass OBJECTIVE DATA Vital Signs: Vital Signs - 24 hr Temp Pulse Resp BP Pulse Ox 06/26/16 07:41 97.7 F 76 20 139/63 93 L 06/26/16 07:02 72 16 93 L 06/25/16 20:24 69 12 91 L 06/25/16 20:00 98.3 F 78 20 141/62 91 L 06/25/16 14:49 82 18 90 L 06/25/16 11:42 78 20 91 L Pain Assessment - Last Documented Pain Intensity 7 Pain Scale Used 0-10 Pain Scale Intake and Output: Intake & Output 06/23/16 06/24/16 06/25/16 06/26/16 11:59 11:59 11:59 11:59 Intake Total 1313 1566 1435 2551 Output Total 500 225 600 Balance 1313 1066 1210 1951 Weight 83.461 kg 85.729 kg 84.504 kg Lab Results: Accuchecks Date 06/26/16 Date 06/25/16 Date 06/25/16 Time 07:30 Time 17:00 Time 11:14 Accucheck Value: 111 Accucheck Value: 157 Accucheck Value: 165 Accucheck Value: 114 Lab Results-Last 24 Hours 06/26/16 Range/Units 05:30 INR 6.54 H* (0.8-3.0) Multi-Disciplinary Progress Notes: Multi-Disciplinary Progress Notes 06/25/16 20:29 Respiratory Note by Nishant Loo 1900 NEB TX SLIGHTLY LATE DUE TO RT IN THE ER. Initialized on 06/25/16 20:29 - END OF NOTE Assessment/Plan (1) Small bowel obstruction Current Visit: No Status: Acute Code(s): K56.69 - OTHER INTESTINAL OBSTRUCTION (2) COPD exacerbation Current Visit: No Status: Acute Assessment & Plan: add prednisone 20mg daily Code(s): J44.1 - CHRONIC OBSTRUCTIVE PULMONARY DISEASE W (ACUTE) EXACERBATION (3) Diabetes mellitus Current Visit: No Status: Acute Qualifiers: Code(s): E11.9 - TYPE 2 DIABETES MELLITUS WITHOUT COMPLICATIONS (4) Atrial fibrillation Current Visit: No Status: Chronic Assessment & Plan: coumadin on hold, monitor INR, will need started back at 1mg/day when INR improved. Code(s): I48.91 - UNSPECIFIED ATRIAL FIBRILLATION (5) Peripheral vascular disease Current Visit: No Status: Chronic Code(s): I73.9 - PERIPHERAL VASCULAR DISEASE, UNSPECIFIED
[2016-06-26] MEDS: DELTASONE 20 MG PO SCH (10:16)
[2016-06-26] MEDS: Zofran 4 MG/2 ML VIAL IV PRN (14:59)
[2016-06-26] MEDS: Cardizem CD 240 MG PO SCH (20:48)
[2016-06-27] MEDS: Ativan 2 MG/1 ML VIAL IV PRN ×4 (01:42→21:48)
[2016-06-27] MEDS: SODIUM CHLORIDE 0.45% W/ 20 mEq KCL 1,000 ML IV SCH ×2 (02:39→23:28)
[2016-06-27] MEDS: TORAdol 30 mg Injection IV PRN ×3 (03:09→21:40)
[2016-06-27 05:40] LABS: Mean Cell Volume 87.1 fl (78-100); Mean Corpuscular Hemoglobin 29.3 pg (26-32); Mean Platelet Volume 10.8 fl (6-9.5); Platelet Count 395 K/mm3 (150-450); Red Blood Count 3.72 M/mm3 (4.1-5.4); Red Cell Distribution Width 17.5 % (11.5-14.0); White Blood Count 21.6 K/mm3 (4.0-10.5)
[2016-06-27 06:03] LABS: ALBUMIN 1.6 g/dL (3.4-5.0); ALKALINE PHOSPHATASE 117 U/L (46-116); ANION GAP 14.6 MEQ/L (5-15); BILIRUBIN,TOTAL 0.4 mg/dL (0.2-1.0); BLOOD UREA NITROGEN 22 mg/dL (9-20); CHLORIDE 103 mEq/L (98-107); Glucose 123 MG/DL (70-110); Potassium 5.1 mEq/L (3.5-5.1); SGOT/AST 13 U/L (15-37); SGPT/ALT 9 U/L (12-78); SODIUM 135 mEq/L (136-145); Total Protein 5.9 gm/dL (6.4-8.2)
[2016-06-27 06:06] LABS: PROTIME 81.3 SECONDS (9.95-12.35)
[2016-06-27 06:19] LABS: BAND 1 % (0.0-2.0); Eosinophil 1 % (0.00-3.0); Total Cells Counted 100
[2016-06-27 06:20] LABS: ANISOCYTOSIS 1+; Platelet Estimate NORMAL (NORMAL); Poikilocytosis 1+; Toxic Granulation 1+
[2016-06-27] MEDS: DUONEB 0.5-3 MG/3 ml Neb IH SCH ×4 (06:35→19:23)
[2016-06-27] MEDS ORDERED: Vitamin K 10 MG/ML PO ONE (07:46)
[2016-06-27] MEDS: Levaquin 250MG/50ML D5W 50 ML IV SCH (09:44)
[2016-06-27] MEDS: MS CONTIN 30 MG PO SCH ×3 (09:44→21:47)
[2016-06-27] MEDS: Pepcid 20 MG PO SCH ×2 (09:44→21:47)
[2016-06-27] MEDS: DELTASONE 20 MG PO SCH (09:44)
[2016-06-27] MEDS: NITRO-DUR 0.2 MG/HR TOP SCH (09:44)
[2016-06-27] MEDS: Zofran 4 MG/2 ML VIAL IV PRN (09:44)
[2016-06-27] MEDS: Phenergan 25 MG INJ IV PRN (14:07)
[2016-06-27] MEDS: GARAMYCIN INJ*** 120 MG in Sodium Chloride 0.9% 50 ML 50 ML IV SCH ×2 (14:07→21:24)
[2016-06-27] MEDS: Cardizem CD 240 MG PO SCH (21:47)
[2016-06-27] MEDS: TYLENOL 325 MG PO PRN (22:21)
[2016-06-27] MEDS: NovoLOG Insulin SQ PRN (22:23)
[2016-06-27] MEDS ORDERED: SUBLIMAZE 100 MCG/2 ML IV ONE (22:37)
[2016-06-28] MEDS: Phenergan 25 MG INJ IV PRN ×2 (00:34→11:11)
[2016-06-28 06:03] LABS: Mean Cell Volume 83.6 fl (78-100); Mean Corpuscular Hemoglobin 28.8 pg (26-32); Mean Platelet Volume 8.8 fl (6-9.5); Red Blood Count 3.85 M/mm3 (4.1-5.4); Red Cell Distribution Width 16.9 % (11.5-14.0); White Blood Count 14.2 K/mm3 (4.0-10.5)
[2016-06-28 06:04] LABS: ALBUMIN 1.4 g/dL (3.4-5.0); ALKALINE PHOSPHATASE 120 U/L (46-116); ANION GAP 14.6 MEQ/L (5-15); BILIRUBIN,TOTAL 0.7 mg/dL (0.2-1.0); BLOOD UREA NITROGEN 26 mg/dL (9-20); CHLORIDE 105 mEq/L (98-107); Carbon Dioxide 20.5 mEq/L (21-32); Glucose 119 MG/DL (70-110); SGOT/AST 13 U/L (15-37); SGPT/ALT 8 U/L (12-78); SODIUM 135 mEq/L (136-145); Total Protein 5.5 gm/dL (6.4-8.2)
[2016-06-28 06:09] LABS: INR 2.66 (0.8-3.0)
[2016-06-28] MEDS: DUONEB 0.5-3 MG/3 ml Neb IH SCH ×2 (06:25→10:40)
[2016-06-28] MEDS: TORAdol 30 mg Injection IV PRN ×2 (06:53→14:58)
[2016-06-28 07:17] LABS: BAND 42 % (0.0-2.0); Metamyelocyte 1 %; Myelocyte 1 %; Total Cells Counted 100
[2016-06-28 07:20] LABS: ANISOCYTOSIS 2+; Basophilic Stippling 1+; Hypochromia 1+; Platelet Estimate INCREASED (NORMAL); Poikilocytosis 1+; Polychromasia 1+
[2016-06-28 07:23] LABS: Platelet Count 600 K/mm3 (150-450)
--- NOTE | 2016-06-28 08:11 | PCM.NOTE ---
Date and Time: 06/28/16809 Subjective Assessment: patient tolerating po but c/o nausea and right side abd pain today Objective Exam General Appearance: no apparent distress, alert Respiratory Exam: normal breath sounds, lungs clear, No respiratory distress Cardiovascular Exam: regular rate/rhythm, normal heart sounds Gastrointestinal/Abdomen Exam: soft, normal bowel sounds, tenderness, No distention, No mass, No guarding Extremity Exam: normal inspection, normal range of motion OBJECTIVE DATA Vital Signs: Vital Signs - 24 hr Temp Pulse Resp BP Pulse Ox 06/28/16 07:20 97.7 F 68 18 130/66 94 L 06/28/16 06:59 78 18 98 06/27/16 20:00 98.8 F 91 H 19 133/63 90 L 06/27/16 19:26 91 H 19 90 L 06/27/16 14:20 83 16 92 L 06/27/16 08:47 75 16 93 L Oxygen-Last 24 hours O2 Percentage 3 Liters = 32% Pain Assessment - Last Documented Pain Intensity 10 Pain Scale Used [facility] Intake and Output: Intake & Output 06/25/16 06/26/16 06/27/16 06/28/16 11:59 11:59 11:59 11:59 Intake Total 1435 2671 2176 1603 Output Total 225 600 Balance 1210 2071 2176 1603 Weight 84.504 kg 85.548 kg 84.912 kg 84.504 kg Lab Results: Accuchecks Accucheck Value: 221 Accucheck Value: 156 Accucheck Value: 175 Lab Results-Last 24 Hours 06/28/16 06/28/16 06/28/16 Range/Units 05:30 05:30 05:30 WBC 14.2 H (4.0-10.5) K/mm3 RBC 3.85 L (4.1-5.4) M/mm3 Hgb 11.1 L (12.0-16.0) gm/dl Hct 32.2 L (35-47) % MCV 83.6 (78-100) fl MCH 28.8 (26-32) pg MCHC 34.5 (32-36) g/dl RDW 16.9 H (11.5-14.0) % Plt Count 600 H (150-450) K/mm3 MPV 8.8 (6-9.5) fl Segmented Neutrophils 49 (36.0-66.0) % Band Neutrophils 42 H (0.0-2.0) % Lymphocytes (Manual) 4 L (24-44) % Monocytes (Manual) 3 (0.0-12.0) % Metamyelocytes 1 % Myelocytes 1 % Differential Comment ABNORMAL Platelet Estimate INCREASED (NORMAL) Polychromasia 1+ Hypochromasia 1+ Poikilocytosis 1+ Basophilic Stippling 1+ Anisocytosis 2+ INR 2.66 (0.8-3.0) Sodium 135 L (136-145) mEq/L Potassium 5.0 (3.5-5.1) mEq/L Chloride 105 (98-107) mEq/L Carbon Dioxide 20.5 L (21-32) mEq/L Anion Gap 14.6 (5-15) MEQ/L BUN 26 H (9-20) mg/dL Creatinine 0.77 (0.55-1.30) mg/dl Estimated GFR > 60 ML/MIN Glucose 119 H (70-110) MG/DL Calcium 7.9 L (8.5-10.1) mg/dL Total Bilirubin 0.7 (0.2-1.0) mg/dL AST 13 L (15-37) U/L ALT 8 L (12-78) U/L Alkaline Phosphatase 120 H (46-116) U/L Serum Total Protein 5.5 L (6.4-8.2) gm/dL Albumin 1.4 L (3.4-5.0) g/dL Radiology Exams: Radiology Procedures Category Date Time Status ABDOMEN 2 VIEW Urgent Exams 06/28/16 08:09 Ordered Multi-Disciplinary Progress Notes: Multi-Disciplinary Progress Notes 06/27/16 16:02 Physical Therapy Note by Amanda Love PATIENT HAS BEEN UNABLE TO TOLERATE MUCH ACTIVITY THE LAST COUPLE DAYS....TODAY URINE CULTURE POSITIVE FOR PSEUDOMONAS AND WBC COUNT 21+. IV GENTAMYCIN ORDERED. Initialized on 06/27/16 16:02 - END OF NOTE 06/27/16 15:11 Nutrition Note by Polly Gallardo F/u Note: Regular diet con't with 25-50% po intake. TPN d/c'd 06/21. weight with slight decrease; currently 186.8#. IV fluids continue. 06/26 fluid balance +2071 cc's. Labs 06/27 = glu 123, BUN 22, alb 1.6, hgb 10.9, hct 32.4. Recommend continue regular diet with encouragement. goal #1) to decrease fluid balance and #2) po > =75% not being met. goal #3) reduced glu being met, all goals to con't. Will monitor and f/u prn. L.CHINEDU Gallardo Initialized on 06/27/16 15:11 - END OF NOTE 06/27/16 13:48 Pharmacy Note by Dionisio Ward URINE CULTURE - PSEUDOMONA AERUGINOSA SENSATIVE TO LEVAQUIN,CEFEPIME, PIP/TAZO. TOB, GENT PT ALLERGIC TO PCN....HIVES WBC INCREASE T0 21.[address] FOSTER , RECOMMENDED ADDING 2ND DRUG.... GENTAMICIN SR CR = 0.66 CR CL = 53 ML MIN..... Q12H DOSING RECOMMENDED. LOWER GENT LEVELS OK FOR UTI STARTED 1.5 MG/KG ROUNDED TO 120 MG Q12H PEAK AND TROUGH ORDERED FOR FRIDAY SHARON Initialized on 06/27/16 13:48 - END OF NOTE Assessment/Plan (1) Small bowel obstruction Current Visit: No Status: Acute Assessment & Plan: repeat abd xray Code(s): K56.69 - OTHER INTESTINAL OBSTRUCTION (2) COPD exacerbation Current Visit: No Status: Acute Assessment & Plan: improved, continue levaquin and nebs/prednisone Code(s): J44.1 - CHRONIC OBSTRUCTIVE PULMONARY DISEASE W (ACUTE) EXACERBATION (3) Diabetes mellitus Current Visit: No Status: Acute Qualifiers: Code(s): E11.9 - TYPE 2 DIABETES MELLITUS WITHOUT COMPLICATIONS (4) Atrial fibrillation Current Visit: No Status: Chronic Code(s): I48.91 - UNSPECIFIED ATRIAL FIBRILLATION (5) Peripheral vascular disease Current Visit: No Status: Chronic Code(s): I73.9 - PERIPHERAL VASCULAR DISEASE, UNSPECIFIED (6) UTI (urinary tract infection) Current Visit: No Status: Resolved Assessment & Plan: on levaquin/gent for pseudomonas, increased wbc likely related to po prednisone effect Code(s): N39.0 - URINARY TRACT INFECTION, SITE NOT SPECIFIED
[2016-06-28] MEDS: Levaquin 250MG/50ML D5W 50 ML IV SCH (08:57)
[2016-06-28] MEDS: SODIUM CHLORIDE 0.45% W/ 20 mEq KCL 1,000 ML IV SCH (08:57)
[2016-06-28] MEDS: NITRO-DUR 0.2 MG/HR TOP SCH (08:58)
[2016-06-28] MEDS: DELTASONE 20 MG PO SCH (08:59)
[2016-06-28] MEDS: MS CONTIN 30 MG PO SCH ×2 (08:59→15:03)
[2016-06-28] MEDS: DURAGESIC TOP SCH (08:59)
[2016-06-28] MEDS: Pepcid 20 MG PO SCH (09:01)
[2016-06-28] MEDS: Zofran 4 MG/2 ML VIAL IV PRN ×2 (09:01→15:00)
[2016-06-28] MEDS: GARAMYCIN INJ*** 120 MG in Sodium Chloride 0.9% 50 ML 50 ML IV SCH (10:19)
--- NOTE | 2016-06-28 13:09 | XRAY ---
Indication: Abdominal pain and nausea. Comparison: June 16, 2016. Supine and left lateral decubitus abdomen now demonstrates abnormal air distended small and large bowel loops throughout and increasing scattered colonic fecal debris obscuring the solid organs. Left lateral decubitus demonstrates new free air concerning for perforated bowel. There remains scattered vascular calcifications, pelvic surgical clips, and osteopenia. Impression: New free air concerning for perforated bowel. Also abnormal air distended small/large bowel loops and fecal stasis. CT may yield further information. Comment: Telephone report was given to Dr. Sandoval at 0955 hrs. on June 28, 2016.
[2016-06-28 14:35] VITALS: BP 140/69; PULSE 97; O2SAT 93
[2016-06-28] MEDS: Ativan 2 MG/1 ML VIAL IV PRN (14:57)
[2016-07-01] MEDS ORDERED: Aplisol ID SCH (10:00)
== END 2016-06-28 15:45 | disposition short-term general hospital (02) | DRG 389 ==
LOC: MED SURG 14:30 → UNDOADMIN 14:34 → MED SURG 06-23 05:02
PROVIDERS: ADMIT Family Medicine; ATTEND Family Medicine
DX: K56.69 Other intestinal obstruction (principal); J44.1 Chronic obstructive pulmonary disease with (acute) exacerbation; N39.0 Urinary tract infection, site not specified; D68.9 Coagulation defect, unspecified; E11.9 Type 2 diabetes mellitus without complications; I73.9 Peripheral vascular disease, unspecified; I48.91 Unspecified atrial fibrillation; I10 Essential (primary) hypertension; B96.5 Pseudomonas (aeruginosa) (mallei) (pseudomallei) as the cause of diseases classified elsewhere; T45.515A Adverse effect of anticoagulants, initial encounter; Z79.4 Long term (current) use of insulin; Z79.899 Other long term (current) drug therapy; R41.0 Disorientation, unspecified; F41.9 Anxiety disorder, unspecified; Z85.42 Personal history of malignant neoplasm of other parts of uterus; Z89.612 Acquired absence of left leg above knee; Z86.718 Personal history of other venous thrombosis and embolism
CPT/HCPCS: 36415; 74020; 80048; 80053; 81000; 82962; 85025; 85610; 87077; 87086; 87186; 94640; 94760; 97110; J1580; J1650; J1815; J1885; J1956; J2060; J2270; J2405; J2550; J3010; J3430; J3475; A9270-GY; J7506